=== PATIENT | female | born 2000 | race Caucasian/White ===

== ENCOUNTER 2023-08-01 18:45 | Emergency (ER) | payer SELFPAY ==
[2023-08-01 18:48] VITALS: BP 121/79; PULSE 94; RESP 16; TEMP 36.8; O2SAT 95; BMI 19.1
--- NOTE | 2023-08-01 19:06 | ED_ITS ---
HPI - Nausea/Vomiting/Diarrhea 2 General: Chief complaint: Abdominal Pain Stated complaint: n/v avd pain fever Time Seen by Provider: 08/01/23 19:05 History of Present Illness: 23-year-old female comes in today for co mplaints of nausea and vomiting starting last night. Patient denies any fever. Patient does report some diarrhea. Patient's last menstrual cycle was the end of June. Patient has a history of asthma and PCOS. Associated nausea: Yes Associated symtoms: Reports nausea Review of Systems 2 General: Reports: 10 or more systems reviewed and unremarkable except in HPI and below GI: Reports: nausea, vomiting and diarrhea Physical Exam 2 Const: COMMON NORMALS: alert HENMT: COMMON NORMALS: normocephalic HEAD & SCALP: normocephalic Neck/C-Spine: COMMON NORMALS: full ROM Resp: COMMON NORMALS: normal respiratory effort and clear to auscultation bilaterally AUSCULTATION: clear to auscultation bilaterally Cardio: COMMON NORMALS: regular rate and regular rhythm RATE: regular rate RHYTHM: regular rhythm GI: COMMON NORMALS: Soft to palpation PALPATION: Yes Soft to palpation and Yes Tenderness to palpation present (GI) : COMMON NORMALS: Yes no CVA tenderness BLADDER/KIDNEY EXAM: Yes no CVA tenderness Back/Pelvis: COMMON NORMALS: no CVA tenderness and thoracic and lumbar spine normal to inspection Extremity: COMMON NORMALS: no pedal edema Neuro: SENSORIUM/ORIENTATION: Yes alert Skin: COMMON NORMALS: turgor normal GENERAL SKIN EXAM: turgor normal Course 2 Vital Signs: Vital signs: Vital Signs Temperature 98.2 F 08/01/23 18:48 Pulse Rate 94 08/01/23 18:48 Respiratory Rate 16 08/01/23 18:48 Blood Pressure 121/79 08/01/23 18:48 Pulse Oximetry 95 08/01/23 18:48 Oxygen Delivery Me thod Room Air 08/01/23 18:48 MDM - Nausea/Vomiting/Diarrhea Medical Decision Making 23-year-old female comes in today for complaints of nausea and vomiting with abdominal pain starting last night. On exam patient appears mildly unwell but not toxic. Abdomen soft with some mild generalized tenderness. No rebound tenderness or guarding is noted. No CVA tenderness noted. Vital signs are normal. Differential diagnosis includes gastroenteritis, dehydration, gallbladder disease, UTI. CBC CMP were unremarkable except for some mild elevation anion gap. Urinalysis showed no signs of acute infection. Patient was given some Zofran and a liter of fluids which improved her symptoms. The patient probably has had a bout of gastroenteritis or viral syndrome that is aggravating this. Recommended Zofran and encouraging plenty of fluids and following up with primary care, for worsening symptoms to return to the ER. Lab Data 08/01/23 19:17 08/01/23 19:17 Laboratory Results WBC 8.67 10^3/uL (3.29-11.43) 08/01/23 19:17 RBC 5.29 10^6/uL (3.85-5.65) 08/01/23 19:17 Hgb 15.60 g/dL (11.27-16.99) 08/01/23 19:17 Hct 47.9 % (36-47) H 08/01/23 19:17 MCV 90.5 fl (85-98) 08/01/23 19:17 MCH 29.5 pg (27-33) 08/01/23 19:17 MCHC 32.6 g/dL (30-55) 08/01/23 19:17 RDW 12.0 % (12.1-15.1) L 08/01/23 19:17 Plt Count 267 10^3/cmm (157-399) 08/01/23 19:17 MPV 10.8 fL (7.4-10.4) H 08/01/23 19:17 Neut % (Auto) 79.3 % 08/01/23 19:17 Lymph % (Auto) 13.0 % 08/01/23 19:17 [place] % (Auto) 6.9 % 08/01/23 19:17 Eos % (Auto) 0.3 % 08/01/23 19:17 Baso % (Auto) 0.2 % 08/01/23 19:17 Neut # (Auto) 6.86 10^3/uL (1.8-7.7) 08/01/23 19:17 Lymph # (Auto) 1.1 10^3/uL (0.8-4.8) 08/01/23 19:17 [place] # (Auto) 0.6 10^3/uL (0.2-0.9) 08/01/23 19:17 Eos # (Auto) 0.0 10^3/uL (0.0-0.8) 08/01/23 19:17 Baso # (Auto) 0.0 10^3/uL (0.0-0.1) 08/01/23 19:17 Nucleated RBC % (auto) 0 % 08/01/23 19:17 Nucleated RBCs # 0.0 /100WBC 08/01/23 19:17 Sodium 143 mmol/L (136-145) 08/01/23 19:17 Potassium 4.3 mmol/L (3.5-5.1) 08/01/23 19:17 Chloride 99 mmol/L (98-107) 08/01/23 19:17 Carbon Dioxide 29 mmol/L (22-29) 08/01/23 19:17 Anion Gap 19.3 (5-19) H 08/01/23 19:17 BUN 11 mg/dL (6-20) 08/01/23 19:17 Creatinine 0.7 mg/dL (0.5-0.9) 08/01/23 19:17 GFR Calculation 105.6 mL/min (90-130) 08/01/23 19:17 Glucose 137 mg/dL (65-115) H 08/01/23 19:17 Calculated Osmolality 298 mOsm/kg (285-295) H 08/01/23 19:17 Calcium 10.5 mg/dL (8.5-10.5) 08/01/23 19:17 Total Bilirubin 0.3 mg/dL (0.15-1.2) 08/01/23 19:17 AST 35 U/L (0-32) H 08/01/23 19:17 ALT 35 U/L (0-33) H 08/01/23 19:17 Alkaline Phosphatase 80 U/L (35-105) 08/01/23 19:17 C-Reactive Protein 3.0 mg/L (0.0-4.9) 08/01/23 19:25 Total Protein 8.1 g/dL (6.6-8.7) 08/01/23 19:17 Albumin 5.1 g/dL (3.5-5.2) 08/01/23 19:17 Globulin 3.0 g/dL (1.3-4.6) 08/01/23 19:17 HCG, Qual Negative (Negative) 08/01/23 19:17 Urine Color Yellow (Yellow) 08/01/23 19:17 Urine Appearance Cloudy (CLEAR) A 08/01/23 19:17 Urine pH 8 (5-7) H 08/01/23 19:17 Ur Specific [place] 1.020 (1.005-1.030) 08/01/23 19:17 Urine Protein Neg (Negative) 08/01/23 19:17 Urine Glucose (UA) Norm (Normal) 08/01/23 19:17 Urine Ketones Negative (Negative) 08/01/23 19:17 Urine Blood Neg (Negative) 08/01/23 19:17 Urine Nitrate Negative (Negative) 08/01/23 19:17 Urine Bilirubin Neg (Negative) 08/01/23 19:17 Prot Sulfosalicylic Acd Negative (Negative) 08/01/23 19:17 Urine Urobilinogen Neg mg/dL (Negative) 08/01/23 19:17 Ur Leukocyte Esterase Negative (Negative) 08/01/23 19:17 Urine RBC 0-4 /hpf (0-2) H 08/01/23 19:17 Urine WBC 0-4 /hpf (0-5) H 08/01/23 19:17 Ur Squamous Epith Cells 0-4 /hpf (0-5) H 08/01/23 19:17 Amorphous Sediment 3+ /hpf 08/01/23 19:17 Urine Bacteria 1+ /hpf (NONE) H 08/01/23 19:17 Urine Mucus Trace /hpf 08/01/23 19:17 No radiology studies performed this visit Discharge Plan Discharge Patient Disposition: Home Clinical Impression: Gastroenteritis Condition: Stable Prescriptions: New ondansetron 4 mg tablet,disintegrating 4 mg PO Q8H PRN (Reason: nausea and vomiting) Qty: 7 0RF Discharge Orders: Discharge ED (Routine); Ordered 08/01/23 Ordered By: Ramsey Angelo Discharge Diet: Advance as tolerated Discharge Activity: Increase activity as tolerated Patient Instructions: Gastroenteritis (ED) Activity Restrictions/Additional Instructions: Use ondansetron as needed for nausea and vomiting. Drink frequent sips of water and electrolyte solution in order to maintain hydration. Follow-up with primary care in 2 to 3 days for recheck. Return to ED for worsening symptoms such as high fever, blood in vomit or stool, or severe pain. Coding Level of Care Code ED Power Project Manager for Santino Christensen
[2023-08-01] MEDS: sodium chloride 0.9% 1,000 ML 999 ML IV (19:24)
[2023-08-01 19:27] LABS: Basophils % 0.2 %; Eosinophils % 0.3 %; Hematocrit 47.9 % (36-47); Lymphocytes # 1.1 10^3/uL (0.8-4.8); Mean Corpuscular HGB Conc 32.6 g/dL (30-55); Mean Corpuscular Hemoglobin 29.5 pg (27-33); Mean Corpuscular Volume 90.5 fl (85-98); Mean Platelet Volume 10.8 fL (7.4-10.4); Monocytes # 0.6 10^3/uL (0.2-0.9); Monocytes % 6.9 %; Neutrophils # 6.86 10^3/uL (1.8-7.7); Neutrophils % 79.3 %; Nucleated Red Blood Cells % 0 %; Platelet Count 267 10^3/cmm (157-399); Red Blood Count 5.29 10^6/uL (3.85-5.65); White Blood Count 8.67 10^3/uL (3.29-11.43)
[2023-08-01] MEDS: ondansetron 2 mg/ML SDV 2 mL 4 MG IVP (19:27)
[2023-08-01 19:41] LABS: Alanine Aminotransferase 35 U/L (0-33); Albumin Level 5.1 g/dL (3.5-5.2); Alkaline Phosphatase 80 U/L (35-105); Anion Gap 19.3 (5-19); Aspartate Amino Transferase 35 U/L (0-32); Blood Urea Nitrogen 11 mg/dL (6-20); Calcium 10.5 mg/dL (8.5-10.5); Carbon Dioxide 29 mmol/L (22-29); Chloride 99 mmol/L (98-107); Creatinine Clr Calc Pharmacy 119.3289; Glomerular Filtration Rate 105.6 mL/min (90-130); Glucose 137 mg/dL (65-115); Osmolality Calculated 298 mOsm/kg (285-295); Potassium 4.3 mmol/L (3.5-5.1); Sodium 143 mmol/L (136-145); Total Bilirubin 0.3 mg/dL (0.15-1.2); Total Protein 8.1 g/dL (6.6-8.7)
[2023-08-01 19:45] LABS: HCG, Serum Qual Negative (Negative)
[2023-08-01 19:51] LABS: Glucose Urine UA Norm (Normal); Ketones Urine Negative (Negative); Protein Urine Neg (Negative); Urine Appearance Cloudy (CLEAR); Urine Color Yellow (Yellow); pH Urine 8 (5-7)
[2023-08-01 19:52] LABS: Add Urine Microscopic? YES; Amorphous Sediment Urine 3+ /hpf; Bacteria Urine 1+ /hpf; Bilirubin Urine Neg (Negative); Blood Urine Neg (Negative); Leukocyte Esterase Urine Negative (Negative); Mucus Urine TRACE /hpf; Nitrate Urine Negative (Negative); RBC Urine 0-4 /hpf (0-2); Squamous Epithelial Cell Urine 0-4 /hpf (0-5); Sulfosalicylic Acid Urine Negative (Negative); Urobilinogen Urine Neg (Negative); WBC Urine 0-4 /hpf (0-5)
[2023-08-01 20:24] VITALS: BP 125/80; PULSE 89; RESP 16; TEMP 36.8; O2SAT 96
== END 2023-08-01 20:24 | disposition home or self-care (01) ==
PROVIDERS: Emergency Provider Nurse Practitioner Family
DX: K52.9 Noninfective gastroenteritis and colitis, unspecified (principal)
CPT/HCPCS: 80053; 81001; 84703; 85025; 86140; 96361; 96374; 99284; J2405; J7030

== ENCOUNTER 2023-08-03 14:19 | Emergency (ER) | payer BC, SELFPAY ==
[2023-08-03 14:26] VITALS: BP 123/79; PULSE 106; RESP 16; TEMP 36.4; O2SAT 99
[2023-08-03 14:53] LABS: Basophils % 0.3 %; Eosinophils % 0.1 %; Lymphocytes # 1.5 10^3/uL (0.8-4.8); Lymphocytes % 16.1 %; Mean Corpuscular HGB Conc 33.2 g/dL (30-55); Mean Corpuscular Hemoglobin 29.3 pg (27-33); Mean Corpuscular Volume 88.3 fl (85-98); Mean Platelet Volume 11.2 fL (7.4-10.4); Monocytes # 0.8 10^3/uL (0.2-0.9); Monocytes % 8.9 %; Neutrophils # 6.73 10^3/uL (1.8-7.7); Neutrophils % 74.4 %; Nucleated Red Blood Cells % 0 %; Platelet Count 307 10^3/cmm (157-399); Red Blood Count 5.32 10^6/uL (3.85-5.65); Red Cell Distribution Width 11.9 % (12.1-15.1); White Blood Count 9.06 10^3/uL (3.29-11.43)
--- NOTE | 2023-08-03 14:53 | ED_ITS ---
HPI - Nausea/Vomiting/Diarrhea 2 General: Chief complaint: Nausea/Vomiting/Diarrhea Stated complaint: n/v, abd pain Time Seen by Provider: 08/03/23 14:48 Source: patient Mode of arrival: ambulatory Limitations: no limitations History of Present Illness: Patient is a 23-year-old female who presents to ED today along with her significant other for evaluation of nausea, vomiting, abdominal pain. She states symptoms initially began approximately 4 days ago. She states she was seen here 2 days ago and states her workup at that time was essentially benign. She has been taking Zofran at home without relief of her nausea and vomiting. She states she has had stomach issues since the age of 15 and has been told previously could be related to her gallbladder. Patient is having intermittent abdominal cramping. She states the only thing that helps her nausea and vomiting is sitting in the bathtub. She denies marijuana use. No fevers. Has had a few episodes of diarrhea. MD elicited complaint: nausea, vomiting, diarrhea and abdominal pain Onset (ago): day(s) Description of diarrhea: watery Associated nausea: Yes Associated abdominal pain: Yes Location of pain: Diffuse Radiation: diffuse Pain consistency: intermittent Severity: moderate Quality: cramping Exacerbating factors: none Relieving factors: none Associated symtoms: Reports nausea; Denies chest pain, dizziness, dysuria, fatigue, headache(s) or malaise Treatment prior to arrival: other (zofran) Review of Systems 2 Const: Denies: fever(s), chills, body aches, fatigue or malaise Card: Denies: chest pain Resp: Denies: dyspnea GI: Reports: abdominal pain, nausea, vomiting and diarrhea; Denies: hematemesis, hematochezia or melena : Denies: flank pain, difficulty voiding, dysuria, urinary frequency, urinary urgency or urinary hesitancy Musc: Denies: neck pain, back pain, extremity pain or joint pain Skin/Breast: Denies: rash Neuro: Denies: headache(s), numbness in extremities, weakness in extremities, sensory changes or dizziness Physical Exam 2 Const: COMMON NORMALS: no acute distress, patient oriented x3, no limitations and alert GENERAL APPEARANCE: cooperative NUTRITIONAL APPEARANCE: thin ORIENTATION/CONSCIOUSNESS: Yes awake, Yes oriented to person, Yes oriented to place and Yes oriented to time Eye: COMMON NORMALS: no scleral icterus Resp: COMMON NORMALS: normal respiratory effort and clear to auscultation bilaterally AUSCULTATION: clear to auscultation bilaterally Cardio: COMMON NORMALS: regular rate and regular rhythm RATE: regular rate RHYTHM: regular rhythm GI: COMMON NORMALS: Normal to inspection, nondistended, normoactive bowel sounds present, Soft to palpation, No hepatosplenomegaly present and no masses INSPECTION: Yes normal to inspection PALPATION: Yes Soft to palpation, Yes Tenderness to palpation present (GI) (diffusely; dry heaves after palpation of abdomen), No Guarding due to palpation present (GI), No Rigid due to palpation and Yes No hepatosplenomegaly present : COMMON NORMALS: Yes no CVA tenderness BLADDER/KIDNEY EXAM: Yes no CVA tenderness Back/Pelvis: COMMON NORMALS: no CVA tenderness Extremity: GENERAL: Yes normal exam except as noted Neuro: YARELIS COMA SCALE: document GCS findings Yarelis coma scale eye opening: Spontaneous [place] coma scale verbal response: Orientated [place] coma scale motor response: Obey commands [place] coma scale total score: 15 COMMON NORMALS: patient oriented x3 SENSORIUM/ORIENTATION: Yes alert, Yes oriented to person, Yes oriented to place and Yes oriented to time Skin: COMMON NORMALS: no rashes or lesions noted GENERAL SKIN EXAM: no rashes or lesions noted Course 2 Vital Signs: Vital signs: Vital Signs Temperature 97.6 F 08/03/23 14:26 Pulse Rate 106 H 08/03/23 14:26 Respiratory Rate 16 08/03/23 15:49 Blood Pressure 103/71 08/03/23 15:49 Pulse Oximetry 97 08/03/23 15:49 Oxygen Delivery Me thod Room Air 08/03/23 15:49 MDM - Nausea/Vomiting/Diarrhea Medical Decision Making Patient is a 23-year-old female here for profound continuous nausea and vomiting over the past 4 days. She has been trying Zofran at home without much relief. She states she does get some relief from a hot bath. She adamantly denies any form of THC/CBD use. DDx includes gastroenteritis, cyclic vomiting syndrome. She was given IV Reglan and Haldol here with great improvement of her symptoms. She was able to eat/drink here without vomiting. She is requesting to go home at this time. Will place case management referral to get her set up with primary care provider. Will try different antiemetics at home with Reglan and Zyprexa. Return ED precautions given. Abdomen is nonsurgical at this time and I do not see any indication for emergent imaging. Differential Diagnosis Likely food poisoning, gastroenteritis, drug-induced nausea and vomiting and dehydration Medical Records I reviewed the patient's medical records. Lab Data I reviewed the patient's lab results. 08/03/23 14:32 08/03/23 14:32 Laboratory Results WBC 9.06 10^3/uL (3.29-11.43) 08/03/23 14:32 RBC 5.32 10^6/uL (3.85-5.65) 08/03/23 14:32 Hgb 15.60 g/dL (11.27-16.99) 08/03/23 14:32 Hct 47.0 % (36-47) 08/03/23 14:32 MCV 88.3 fl (85-98) 08/03/23 14:32 MCH 29.3 pg (27-33) 08/03/23 14:32 MCHC 33.2 g/dL (30-55) 08/03/23 14:32 RDW 11.9 % (12.1-15.1) L 08/03/23 14:32 Plt Count 307 10^3/cmm (157-399) 08/03/23 14:32 MPV 11.2 fL (7.4-10.4) H 08/03/23 14:32 Neut % (Auto) 74.4 % 08/03/23 14:32 Lymph % (Auto) 16.1 % 08/03/23 14:32 [place] % (Auto) 8.9 % 08/03/23 14:32 Eos % (Auto) 0.1 % 08/03/23 14:32 Baso % (Auto) 0.3 % 08/03/23 14:32 Neut # (Auto) 6.73 10^3/uL (1.8-7.7) 08/03/23 14:32 Lymph # (Auto) 1.5 10^3/uL (0.8-4.8) 08/03/23 14:32 [place] # (Auto) 0.8 10^3/uL (0.2-0.9) 08/03/23 14:32 Eos # (Auto) 0.0 10^3/uL (0.0-0.8) 08/03/23 14:32 Baso # (Auto) 0.0 10^3/uL (0.0-0.1) 08/03/23 14:32 Nucleated RBC % (auto) 0 % 08/03/23 14:32 Nucleated RBCs # 0.0 /100WBC 08/03/23 14:32 Sodium 133 mmol/L (136-145) L 08/03/23 14:32 Potassium 4.0 mmol/L (3.5-5.1) 08/03/23 14:32 Chloride 92 mmol/L (98-107) L 08/03/23 14:32 Carbon Dioxide 24 mmol/L (22-29) 08/03/23 14:32 Anion Gap 21.0 (5-19) H 08/03/23 14:32 BUN 17 mg/dL (6-20) 08/03/23 14:32 Creatinine 0.8 mg/dL (0.5-0.9) 08/03/23 14:32 GFR Calculation 90.5 mL/min (90-130) 08/03/23 14:32 Glucose 91 mg/dL (65-115) 08/03/23 14:32 Calculated Osmolality 277 mOsm/kg (285-295) L 08/03/23 14:32 Calcium 11.0 mg/dL (8.5-10.5) H 08/03/23 14:32 Total Bilirubin 0.6 mg/dL (0.15-1.2) 08/03/23 14:32 AST 31 U/L (0-32) 08/03/23 14:32 ALT 31 U/L (0-33) 08/03/23 14:32 Alkaline Phosphatase 76 U/L (35-105) 08/03/23 14:32 Total Protein 8.6 g/dL (6.6-8.7) 08/03/23 14:32 Albumin 5.0 g/dL (3.5-5.2) 08/03/23 14:32 Globulin 3.6 g/dL (1.3-4.6) 08/03/23 14:32 Lipase 25 U/L (13-60) 08/03/23 14:32 HCG, Qual Negative (Negative) 08/03/23 14:32 Urine Color Yellow (Yellow) 08/03/23 15:47 Urine Appearance Sl hazy (CLEAR) A 08/03/23 15:47 Urine pH 6 (5-7) 08/03/23 15:47 Ur Specific [place] 1.030 (1.005-1.030) 08/03/23 15:47 Urine Protein 1+ (Negative) H 08/03/23 15:47 Urine Glucose (UA) Norm (Normal) 08/03/23 15:47 Urine Ketones 3+ (Negative) H 08/03/23 15:47 Urine Blood Neg (Negative) 08/03/23 15:47 Urine Nitrate Negative (Negative) 08/03/23 15:47 Urine Bilirubin Neg (Negative) 08/03/23 15:47 Urine Urobilinogen Norm mg/dL (Negative) 08/03/23 15:47 Ur Leukocyte Esterase Negative (Negative) 08/03/23 15:47 Amorphous Sediment Not Reportable 08/03/23 15:47 No radiology studies performed this visit Discharge Plan Discharge Patient Disposition: Home Clinical Impression: Gastroenteritis Condition: Stable Prescriptions: New metoclopramide HCl 10 mg tablet 10 mg PO Q6H PRN (Reason: nausea and vomiting) Qty: 14 0RF Zyprexa 2.5 mg tablet 2.5 mg PO BID Qty: 10 0RF Discontinued ondansetron 4 mg tablet,disintegrating 4 mg PO Q8H PRN (Reason: nausea and vomiting) Qty: 7 0RF Discharge Orders: Discharge ED (Routine); Ordered 08/03/23 Ordered By: Katelin Loja Patient Instructions: Acute Nausea and Vomiting (DC), Cyclic Vomiting Syndrome (ED) Activity Restrictions/Additional Instructions: As we discussed we will get you a follow-up appointment with primary care. We will place you on some different medications at home to see if this better controls her nausea and vomiting. You may return to the emergency department for intractable nausea or vomiting, severe abdominal pain, fevers, generally feeling worse or unwell, or any other concerns you may have. I hope you begin to feel better soon. Coding Level of Care Code ED Casing Man for Santino Christensen
[2023-08-03 14:58] LABS: Alanine Aminotransferase 31 U/L (0-33); Alkaline Phosphatase 76 U/L (35-105); Aspartate Amino Transferase 31 U/L (0-32); Blood Urea Nitrogen 17 mg/dL (6-20); Carbon Dioxide 24 mmol/L (22-29); Chloride 92 mmol/L (98-107); Creatinine Clr Calc Pharmacy 104.4128; Globulin 3.6 g/dL (1.3-4.6); Glomerular Filtration Rate 90.5 mL/min (90-130); Glucose 91 mg/dL (65-115); Lipase 25 U/L (13-60); Osmolality Calculated 277 mOsm/kg (285-295); Sodium 133 mmol/L (136-145); Total Bilirubin 0.6 mg/dL (0.15-1.2); Total Protein 8.6 g/dL (6.6-8.7)
[2023-08-03 15:06] LABS: HCG, Serum Qual Negative (Negative)
[2023-08-03] MEDS: metoclopramide 5 mg/mL SDV 2 mL 10 MG IVP (15:11)
[2023-08-03] MEDS: sodium chloride 0.9% 1,000 ML 999 ML IV (15:12)
[2023-08-03] MEDS: haloperidol inj 5 mg/mL INJ 1 mL 2.5 MG IVP (15:12)
[2023-08-03 15:49] VITALS: BP 103/71; RESP 16; O2SAT 97
[2023-08-03 16:26] LABS: Add Urine Microscopic? YES; Bilirubin Urine Neg (Negative); Blood Urine Neg (Negative); Glucose Urine UA Norm (Normal); Ketones Urine 3+ (Negative); Leukocyte Esterase Urine Negative (Negative); Nitrate Urine Negative (Negative); Protein Urine 1+ (Negative); Urine Appearance SL Hazy (CLEAR); Urine Color Yellow (Yellow); Urobilinogen Urine Norm (Negative); pH Urine 6 (5-7)
[2023-08-03 16:40] LABS: Add Urine Culture? No; Bacteria Urine TRACE /hpf; Mucus Urine 1+ /hpf; RBC Urine 0-4 /hpf (0-2); Squamous Epithelial Cell Urine 0-4 /hpf (0-5); WBC Urine 0-4 /hpf (0-5)
[2023-08-03 16:45] VITALS: BP 109/74; PULSE 109; RESP 16; O2SAT 95
--- NOTE | 2023-08-04 12:03 | DCPLANNER ---
messaged about pcp referral
== END 2023-08-03 16:46 | disposition home or self-care (01) ==
PROVIDERS: Emergency Provider Physician Assistant
DX: K52.9 Noninfective gastroenteritis and colitis, unspecified (principal)
CPT/HCPCS: 36415; 80053; 81001; 83690; 84703; 85025; 96374; 96375; 99284; J1630; J2765; J7030

== ENCOUNTER 2023-09-02 14:41 | Emergency (ER) | payer BC, SELFPAY ==
[2023-09-02 14:45] VITALS: BP 107/67; PULSE 84; RESP 18; TEMP 36.7; O2SAT 97; BMI 19.4
[2023-09-02 14:54] VITALS: O2SAT 98
--- NOTE | 2023-09-02 15:03 | CTR_ITS ---
PROCEDURE INFORMATION: Exam: CT Abdomen And Pelvis With Contrast Exam date and time: 09/02/2023 4:09 PM Age: 23 years old Clinical indication: Abdominal pain; Localized; Lower; Prior surgery; Surgery date: 6+ months; Surgery type: Lap to R/O endometriosis; Additional info: Abd pain TECHNIQUE: Imaging protocol: Computed tomography of the abdomen and pelvis with contrast. Radiation optimization: All CT scans at this facility use at least one of these dose optimization techniques: automated exposure control; mA and/or kV adjustment per patient size (includes targeted exams where dose is matched to clinical indication); or iterative reconstruction. Contrast material: OMNI 350; Contrast volume: 100 ml; Contrast route: INTRAVENOUS (IV); COMPARISON: No relevant prior studies available. RADIATION DOSE METRICS: Total DLP (mGy-cm): 346.15 FINDINGS: Lungs: Lung bases are clear. Liver: The liver is normal. Gallbladder and bile ducts: The gallbladder is normal. There is no biliary dilation. Pancreas: The pancreas is unremarkable. Spleen: The spleen is unremarkable. Adrenal glands: The adrenal glands are unremarkable. Kidneys and ureters: The kidneys are unremarkable. No hydronephrosis or stones. No ureteral dilation. Stomach and bowel: The stomach is nondistended, limiting assessment of wall thickness. The small bowel is nondilated. The colon is unremarkable. Appendix: The appendix is normal. Intraperitoneal space: No intraperitoneal free air. Vasculature: The aorta is unremarkable. There is no aneurysm. The portal, splenic and superior mesenteric veins are patent. Lymph nodes: There is no lymphadenopathy in the retroperitoneum, mesentery, pelvis or inguinal regions. Urinary bladder: The urinary bladder is unremarkable. Reproductive: The uterus is unremarkable. There is no adnexal mass or large cyst. There is a 2 cm corpus luteum in the right ovary. There is a small volume of simple free fluid in the posterior cul-de-sac and right adnexa. Bones/joints: Bones are unremarkable. Soft tissues: The abdominal wall is intact. CT/CT abdomen pelvis w con* [id number] IMPRESSION: 1. No definite pathologic findings in the abdomen or pelvis. 2. Pelvic free fluid may be physiologic, and is associated with a corpus luteum in the right ovary. 3. Incidental findings above.
[2023-09-02 15:14] LABS: Basophils % 0.4 %; Eosinophils # 0.1 10^3/uL (0.0-0.8); Eosinophils % 1.2 %; Hematocrit 45.5 % (36-47); Lymphocytes # 1.7 10^3/uL (0.8-4.8); Lymphocytes % 22.2 %; Mean Corpuscular HGB Conc 32.5 g/dL (30-55); Mean Corpuscular Hemoglobin 29.3 pg (27-33); Mean Corpuscular Volume 90.1 fl (85-98); Mean Platelet Volume 11.3 fL (7.4-10.4); Monocytes # 0.8 10^3/uL (0.2-0.9); Neutrophils # 5.03 10^3/uL (1.8-7.7); Neutrophils % 65.9 %; Nucleated Red Blood Cells % 0 %; Platelet Count 236 10^3/cmm (157-399); Red Blood Count 5.05 10^6/uL (3.85-5.65); Red Cell Distribution Width 12.2 % (12.1-15.1); White Blood Count 7.62 10^3/uL (3.29-11.43)
[2023-09-02 15:24] LABS: Alanine Aminotransferase 12 U/L (0-33); Albumin Level 4.8 g/dL (3.5-5.2); Alkaline Phosphatase 70 U/L (35-105); Blood Urea Nitrogen 8 mg/dL (6-20); Calcium 9.9 mg/dL (8.5-10.5); Carbon Dioxide 26 mmol/L (22-29); Chloride 102 mmol/L (98-107); Creatinine Clr Calc Pharmacy 119.3289; Globulin 3.1 g/dL (1.3-4.6); Glomerular Filtration Rate 105.6 mL/min (90-130); Glucose 68 mg/dL (65-115); Lipase 35 U/L (13-60); Osmolality Calculated 285 mOsm/kg (285-295); Sodium 139 mmol/L (136-145); Total Bilirubin 0.4 mg/dL (0.15-1.2); Total Protein 7.9 g/dL (6.6-8.7)
[2023-09-02] MEDS: ondansetron 2 mg/ML SDV 2 mL 4 MG IVP (15:38)
[2023-09-02] MEDS: sodium chloride 0.9% 1,000 ML 999 ML IV (15:38)
[2023-09-02 15:43] LABS: Add Urine Microscopic? NO; Charge for UA Resulting for Rev
--- NOTE | 2023-09-02 15:48 | ED_ITS ---
HPI - Nausea/Vomiting/Diarrhea 2 General: Chief complaint: Nausea/Vomiting/Diarrhea Stated complaint: vomit/gi bleed Time Seen by Provider: 09/02/23 15:03 Source: patient Mode of arrival: ambulatory History of Present Illness: 23-year-old female presents emergency ro om complaining of intermittent vomiting for the last 2 weeks. She states almost anything she eats will cause her to get nauseous and throw up. She had a few small streaks of blood earlier today. She has not had any diarrhea. No significant abdominal pain other than the abdominal wall has become tender because of her recurrent vomiting. No hematochezia. No dysuria urgency or frequency her last menstrual period was around August 12 to she does not believe she is . She has seen her doctor before and they started her on some dicyclomine and Reglan which not has not particularly been helpful. She has not had any further evaluation. MD elicited complaint: nausea and vomiting Onset (ago): week(s) (2) Description of vomiting: food contents and watery Associated nausea: Yes Associated abdominal pain: No Severity: moderate Exacerbating factors: eating Relieving factors: none Associated symtoms: Reports nausea; Denies altered mental status, anxiety, bloating, change in vision, chest pain, cough, diaphoresis, decreased urine output, dizziness, dysuria, epistaxis, fatigue, fecal incontinence, fevers/chills, headache(s), anorexia, malaise, myalgias, numbness, palpitations, rash, short of breath, syncope, tenesmus, tinnitus or weakness Review of Systems 2 Const: Denies: fever(s), chills, fatigue, malaise or diaphoresis Eyes: Denies: change in vision ENMT: Denies: tinnitus or epistaxis Card: Denies: chest pain, palpitations or syncope Resp: Denies: dyspnea GI: Reports: nausea; Denies: abdominal pain, bloating or fecal incontinence : Denies: dysuria, urinary frequency or urinary urgency Musc: Denies: neck pain or back pain Skin/Breast: Denies: rash Neuro: Denies: headache(s) or dizziness Psych: Denies: anxiety PFSH ED 2 PFSH: Medical History Chronic abdominal pain Asthma PCOS (polycystic ovarian syndrome) Surgical History [place] teeth removed H/O laparoscopy Family History Father Diabetes Liver disease Mother PCOS (polycystic ovarian syndrome) Hiatal hernia Social History Smoking and tobacco/nicotine status: former use of tobacco/nicotine Alcohol intake: never Substance/Drug Use: former Physical Exam 2 Const: COMMON NORMALS: no acute distress EXAM LIMITATIONS: no altered mental status GENERAL APPEARANCE: cooperative and comfortable O RIENTATION/CONSCIOUSNESS: Yes awake, Yes oriented to person, Yes oriented to place and Yes oriented to time HENMT: COMMON NORMALS: normocephalic, atraumatic and hearing grossly normal bilaterally HEAD & SCALP: normocephalic and atraumatic Resp: COMMON NORMALS: normal respiratory effort, No retractions, No use of accessory muscles and clear to auscultation bilaterally AUSCULTATION: clear to auscultation bilaterally Cardio: COMMON NORMALS: regular rate, regular rhythm and No murmurs present (Cardio) RATE: regular rate RHYTHM: regular rhythm GI: COMMON NORMALS: Soft to palpation and No hepatosplenomegaly present A USCULTATION: Yes normoactive bowel sounds PALPATION: Yes Soft to palpation, No Tenderness to palpation present (GI), No Guarding due to palpation present (GI) and Yes No hepatosplenomegaly present Extremity: COMMON NORMALS: normal to inspection, capillary refill normal, no clubbing, cyanosis or edema, no calf tenderness and no pedal edema Neuro: SENSORIUM/ORIENTATION: Yes oriented to person, Yes oriented to place and Yes oriented to time Skin: COMMON NORMALS: no rashes or lesions noted GENERAL SKIN EXAM: no rashes or lesions noted Course 2 Vital Signs: Vital signs: Vital Signs Temperature 98.0 F 09/02/23 14:45 Pulse Rate 84 09/02/23 14:45 Respiratory Rate 18 09/02/23 14:45 Blood Pressure 107/67 09/02/23 14:45 Pulse Oximetry 97 09/02/23 16:25 Oxygen Delivery Me thod Room Air 09/02/23 16:25 MDM - Nausea/Vomiting/Diarrhea Medical Decision Making Laboratory tests are unremarkable exam does not have any acute abdomen either initially repeated prior to discharge still there is no acute findings. CT was unremarkable for acute findings. Will start her on pantoprazole 40 mg daily as well as promethazine as needed GI bland diet. Will set her up to see surgery for possible EGD. Reviewed with patient she is agreeable. Medical Records I reviewed the patient's medical records. Lab Data I reviewed the patient's lab results. 09/02/23 14:25 09/02/23 14:25 Radiology Impressions Abdomen/Pelvis CT 09/02/23 15:03 IMPRESSION: 1. No definite pathologic findings in the abdomen or pelvis. 2. Pelvic free fluid may be physiologic, and is associated with a corpus luteum in the right ovary. 3. Incidental findings above. Laboratory Results WBC 7.62 10^3/uL (3.29-11.43) 09/02/23 14:25 RBC 5.05 10^6/uL (3.85-5.65) 09/02/23 14:25 Hgb 14.80 g/dL (11.27-16.99) 09/02/23 14:25 Hct 45.5 % (36-47) 09/02/23 14:25 MCV 90.1 fl (85-98) 09/02/23 14:25 MCH 29.3 pg (27-33) 09/02/23 14:25 MCHC 32.5 g/dL (30-55) 09/02/23 14:25 RDW 12.2 % (12.1-15.1) 09/02/23 14:25 Plt Count 236 10^3/cmm (157-399) 09/02/23 14:25 MPV 11.3 fL (7.4-10.4) H 09/02/23 14:25 Neut % (Auto) 65.9 % 09/02/23 14:25 Lymph % (Auto) 22.2 % 09/02/23 14:25 [place] % (Auto) 10.0 % 09/02/23 14:25 Eos % (Auto) 1.2 % 09/02/23 14:25 Baso % (Auto) 0.4 % 09/02/23 14:25 Neut # (Auto) 5.03 10^3/uL (1.8-7.7) 09/02/23 14:25 Lymph # (Auto) 1.7 10^3/uL (0.8-4.8) 09/02/23 14:25 [place] # (Auto) 0.8 10^3/uL (0.2-0.9) 09/02/23 14:25 Eos # (Auto) 0.1 10^3/uL (0.0-0.8) 09/02/23 14:25 Baso # (Auto) 0.0 10^3/uL (0.0-0.1) 09/02/23 14:25 Nucleated RBC % (auto) 0 % 09/02/23 14:25 Nucleated RBCs # 0.0 /100WBC 09/02/23 14:25 Sodium 139 mmol/L (136-145) 09/02/23 14:25 Potassium 4.0 mmol/L (3.5-5.1) 09/02/23 14:25 Chloride 102 mmol/L (98-107) 09/02/23 14:25 Carbon Dioxide 26 mmol/L (22-29) 09/02/23 14:25 Anion Gap 15.0 (5-19) 09/02/23 14:25 BUN 8 mg/dL (6-20) 09/02/23 14:25 Creatinine 0.7 mg/dL (0.5-0.9) 09/02/23 14:25 GFR Calculation 105.6 mL/min (90-130) 09/02/23 14:25 Glucose 68 mg/dL (65-115) 09/02/23 14:25 Calculated Osmolality 285 mOsm/kg (285-295) 09/02/23 14:25 Calcium 9.9 mg/dL (8.5-10.5) 09/02/23 14:25 Total Bilirubin 0.4 mg/dL (0.15-1.2) 09/02/23 14:25 AST 22 U/L (0-32) 09/02/23 14:25 ALT 12 U/L (0-33) 09/02/23 14:25 Alkaline Phosphatase 70 U/L (35-105) 09/02/23 14:25 Total Protein 7.9 g/dL (6.6-8.7) 09/02/23 14:25 Albumin 4.8 g/dL (3.5-5.2) 09/02/23 14:25 Globulin 3.1 g/dL (1.3-4.6) 09/02/23 14:25 Lipase 35 U/L (13-60) 09/02/23 14:25 HCG, Qual Negative (Negative) 09/02/23 15:40 Urine Color Yellow (Yellow) 09/02/23 15:30 Urine Appearance Clear (CLEAR) 09/02/23 15:30 Urine pH 7 (5-7) 09/02/23 15:30 Ur Specific [place] 1.010 (1.005-1.030) 09/02/23 15:30 Urine Protein Neg (Negative) 09/02/23 15:30 Urine Glucose (UA) Norm (Normal) 09/02/23 15:30 Urine Ketones Negative (Negative) 09/02/23 15:30 Urine Blood Neg (Negative) 09/02/23 15:30 Urine Nitrate Negative (Negative) 09/02/23 15:30 Urine Bilirubin Neg (Negative) 09/02/23 15:30 Urine Urobilinogen Norm mg/dL (Negative) 09/02/23 15:30 Ur Leukocyte Esterase Negative (Negative) 09/02/23 15:30 All radiology interpretation(s) finalized by discharge Discharge Plan Discharge Patient Disposition: Home Clinical Impression: Chronic abdominal pain, Nausea & vomiting Condition: Stable Prescriptions: New Protonix 40 mg tablet,delayed release (DR/EC) 40 mg PO DAILY Qty: 30 0RF promethazine 25 mg tablet 25 mg PO Q6H PRN (Reason: nausea and vomiting) Qty: 20 0RF No Action dicyclomine 10 mg capsule 10 mg PO .q 6 hr PRN (Reason: abdominal pain) Qty: 30 1RF metoclopramide HCl 10 mg tablet 10 mg PO Q6H PRN (Reason: nausea and vomiting) Qty: 14 0RF Zyprexa 2.5 mg tablet 2.5 mg PO BID Qty: 10 0RF Discharge Orders: Discharge ED (Routine); Ordered 09/02/23 Ordered By: Pb Avila Referrals: True Patel MD [Primary Care Provider] - Discharge Diet: As Directed Patient Instructions: Diet for Stomach Ulcers and Gastritis (ED), Abdominal Pain (ED), Opioid Safety, Pain Management Activity Restrictions/Additional Instructions: Thank you for choosing [facility] for your healthcare needs today. Please realize this is an emergency room and that we are providing you with a medical screening exam and this may not be complete and all inclusive of all the testing and or work up that you may need to determine your ailment or severity of your illness. It is very important that you follow up as instructed or that you return to the Emergency Department should you have concerns or if your condition changes or worsens in any way. You were seen today for recurrent vomiting. Recommended that you start pantoprazole 40 mg daily as above promethazine 1 every 6 hours as needed. Case management make arrangements for you to have a follow-up with general surgery for consideration of EGD. Coding Level of Care Code ED Preventive Medicine Officer for Santino Christensen
[2023-09-02 15:49] LABS: Bilirubin Urine Neg (Negative); Blood Urine Neg (Negative); Glucose Urine UA Norm (Normal); Ketones Urine Negative (Negative); Leukocyte Esterase Urine Negative (Negative); Nitrate Urine Negative (Negative); Protein Urine Neg (Negative); Urine Appearance Clear (CLEAR); Urine Color Yellow (Yellow); Urobilinogen Urine Norm (Negative); pH Urine 7 (5-7)
[2023-09-02 16:02] LABS: HCG, Serum Qual Negative (Negative)
[2023-09-02] MEDS: iohexol 350 mg/mL 500 mL Btl (per mL) IV (16:12)
[2023-09-02 16:25] VITALS: O2SAT 97
[2023-09-02 16:26] LABS: Aspartate Amino Transferase 22 U/L (0-32)
--- NOTE | 2023-09-03 11:23 | DCPLANNER ---
message sent to gen surg for er f/u
== END 2023-09-02 17:49 | disposition home or self-care (01) ==
PROVIDERS: Emergency Provider Family Medicine; PCP Family Medicine Adult Medicine
DX: G89.29 Other chronic pain (principal); R10.9 Unspecified abdominal pain; R11.2 Nausea with vomiting, unspecified; Z87.891 Personal history of nicotine dependence
CPT/HCPCS: 36415; 74177; 80053; 81003; 83690; 84703; 85025; 96374; 99285; J2405; J7030; Q9967

== ENCOUNTER 2023-10-06 07:25 | Outpatient (CLI) | payer BC, SELFPAY ==
--- NOTE | 2023-10-06 07:30 | USR_ITS ---
PROCEDURE INFORMATION: Exam: US Abdomen, Limited; Right Upper Quadrant Exam date and time: 10/06/2023 7:36 AM Age: 23 years old Clinical indication: Abdominal pain; Generalized TECHNIQUE: Imaging protocol: Real time ultrasound of the abdomen with image documentation. Limited exam focused on the right upper quadrant. COMPARISON: CT abdomen pelvis w con* [id number] 09/02/2023 4:09 PM FINDINGS: Liver: Normal. No masses. Gallbladder: Normal. No gallstones. There is no gallbladder wall thickening. Biliary ducts: Normal. No stones. No dilation. Pancreas: Visualized pancreas is unremarkable. Right kidney: Normal. No mass. No hydronephrosis. US/US gall bladder [id number] IMPRESSION: No acute findings.
== END 2023-10-06 07:26 | disposition home or self-care (01) ==
LOC: RAD 07:25
PROVIDERS: PCP Family Medicine Adult Medicine; Visit Provider Surgery
DX: R10.9 Unspecified abdominal pain (principal); G89.29 Other chronic pain
CPT/HCPCS: 76705

== ENCOUNTER → 2023-11-08 07:49 | Outpatient (BNVA) | payer BC, SELFPAY | PROVIDERS: PCP Family Medicine Adult Medicine; Visit Provider Nurse Practitioner Women's Health | DX: R10.2 Pelvic and perineal pain (principal) | CPT/HCPCS: 76830 ==

== ENCOUNTER 2023-11-26 18:13 | Emergency (ER) | payer BC, SELFPAY ==
[2023-11-26 18:21] VITALS: BP 125/77; PULSE 92; RESP 18; TEMP 36.8; O2SAT 99; BMI 19.9
== END 2023-11-26 19:05 | disposition left against medical advice (07) ==
PROVIDERS: Emergency Provider Family Medicine; PCP Family Medicine Adult Medicine
DX: Z53.21 Procedure and treatment not carried out due to patient leaving prior to being seen by health care provider (principal)

== ENCOUNTER 2024-01-03 18:32 | Emergency (ER) | payer BC, SELFPAY ==
[2024-01-03 18:40] VITALS: BP 123/82; PULSE 98; TEMP 36.8; O2SAT 99; BMI 21.1
--- NOTE | 2024-01-03 20:13 | ED_ITS ---
HPI - Abdominal Pain 2 General: Chief Complaint: Abdominal Pain Stated Complaint: N/V, Lower abd pain Time Seen by Provider: 01/03/24 18:45 Source: patient Mode of arrival: ambulatory Limitations: no limitations History of Present Illness: Patient is a 23-year-old female presents the emergency department complaining of 3 to 4 days of suprapubic abdominal pain. She states she feels like she is having a bad UTI, also states she is 1 month late on her menstrual cycle and though she has the sensation that she is bleeding, has not noticed any vaginal bleeding. She also notes some hesitancy with urination. Reports that she is sick to her stomach and has been vomiting, though states she has been dealing with this since she was 15 years old. No fever, back pain, changes in bowel habits, or other symptoms reported at this time. She does state that she took a home test which was negative. MD elicited complaint: abdominal pain (Suprapubic) Pertinent past history: none Onset (ago): day(s) Pain Consistency: constant Location: Suprapubic Severity: mild Quality: cramping Radiation: none Exacerbating factors: nothing Relieving factors: nothing Associated Symptoms: Reports nausea and vomiting; Denies bloating, change in stool character, chills, constipation, diarrhea, dysuria, fever(s) and hematochezia Related Data Previous Rx's Medication Instructions Recorded olanzapine 2.5 mg tablet (Zyprexa) 2.5 mg PO BID #10 tabs 08/03/23 pantoprazole 40 mg tablet,delayed 40 mg PO DAILY #30 tabs 09/02/23 release (Protonix) promethazine 25 mg tablet 25 mg PO Q6H PRN nausea and 09/02/23 vomiting #20 tabs doxycycline hyclate 100 mg capsule 100 mg PO BID 7 days #14 caps 11/10/23 metronidazole 500 mg tablet 500 mg PO BID 7 days #14 tabs 11/10/23 norelgestromin 150 mcg-e.estradiol See Rx Instructions .Route 12/07/23 35 mcg/24 hr weekly transderm .COMPLEX #3 patches patch (Xulane) Allergies Allergy/AdvReac Type Severity Reaction Status Date / Time marijuana (cannabis) Allergy ALGY-Anaphy Verified 01/03/24 18:43 laxis Review of Systems 2 General: Reports: 10 or more systems reviewed and unremarkable except in HPI and below Const: Denies: fever(s), chills, change in appetite, change in weight or diaphoresis ENMT: Denies: throat pain or hoarseness Card: Denies: chest pain, palpitations or lightheadedness Resp: Denies: dyspnea, productive cough or wheezing GI: Reports: abdominal pain, nausea and vomiting; Denies: diarrhea, constipation, bloating, change in stool character or hematochezia : Reports: urinary hesitancy; Denies: flank pain, difficulty voiding, dysuria, urinary frequency or urinary urgency Musc: Denies: neck pain or back pain Skin/Breast: Denies: rash or new lesions Neuro: Denies: headache(s) or dizziness PFSH ED 2 PFSH: Medical History Chronic abdominal pain Asthma PCOS (polycystic ovarian syndrome) Surgical History History of esophagogastroduodenoscopy (EGD) Age 21- [place] teeth removed H/O laparoscopy Family History Father Diabetes Hypertension Mother No problems noted. Grandfather Heart disease Thyroid disease Denies family history of Colon cancer Ovarian cancer Prostate cancer Breast cancer Uterine cancer Stroke Social History Smoking and tobacco/nicotine status: former use of tobacco/nicotine Physical Exam 2 Const: COMMON NORMALS: no acute distress, average body habitus, patient oriented x3, no limitations, healthy appearing, alert and well nourished G ENERAL APPEARANCE: cooperative and comfortable ORIENTATION/CONSCIOUSNESS: Yes awake HENMT: COMMON NORMALS: normocephalic, atraumatic, hearing grossly normal bilaterally, external ears normal, Normal external nose present, Normal nasal mucous membranes and turbinates present and moist oral mucous membranes HEAD & SCALP: normocephalic and atraumatic NOSE: Normal external nose present and Normal nasal mucous membranes and turbinates present EXTERNAL EAR: Yes external ears normal Eye: COMMON NORMALS: Equal, round and reactive pupils present, EOMs intact bilaterally, conjunctivae normal and normal visual mishra by confrontation C ONJUNCTIVA: Yes conjunctivae normal PUPIL: Yes Equal, round and reactive pupils present Neck/C-Spine: COMMON NORMALS: full ROM, supple, no meningeal signs and no JVD Resp: COMMON NORMALS: normal respiratory effort, No retractions, No use of accessory muscles and clear to auscultation bilaterally AUSCULTATION: clear to auscultation bilaterally, no crackles, no rales, no rhonchi and no wheezes Cardio: COMMON NORMALS: no JVD, regular rate, regular rhythm, S1 normal heart sound present, S2 normal heart sound present, No gallops present (Cardio), No clicks present (Cardio), No murmurs present (Cardio), No rub (Cardio) and Peripheral pulses 2+ throughout RATE: regular rate RHYTHM: regular rhythm HEART SOUNDS: S1 normal heart sound present and S2 normal heart sound present PERIPHERAL PULSES: Peripheral pulses 2+ throughout GI: COMMON NORMALS: Normal to inspection, nondistended, normoactive bowel sounds present, Soft to palpation, No hepatosplenomegaly present and no masses AUSCULTATION: Yes normoactive bowel sounds PALPATION: Yes Soft to palpation, Yes Tenderness to palpation present (GI) (Mild suprapubic tenderness to palpation), No Guarding due to palpation present (GI), No Rigid due to palpation and Yes No hepatosplenomegaly present RECTAL EXAM: deferred : COMMON NORMALS: Yes no CVA tenderness BLADDER/KIDNEY EXAM: Yes no CVA tenderness Back/Pelvis: COMMON NORMALS: no CVA tenderness Extremity: COMMON NORMALS: normal to inspection and full ROM Neuro: COMMON NORMALS: patient oriented x3, moves all extremities, no focal motor deficits and no sensory deficits noted SENSORIUM/ORIENTATION: Yes alert MENINGEAL SIGNS: Yes no meningeal signs Psych: COMMON NORMALS: mental status grossly normal, cooperative and speech normal SPEECH: Yes normal speech Skin: COMMON NORMALS: no rashes or lesions noted GENERAL SKIN EXAM: no rashes or lesions noted Course 2 Vital Signs: Vital signs: Vital Signs Temperature 98.2 F 01/03/24 18:40 Pulse Rate 98 01/03/24 18:40 Respiratory Rate 18 01/03/24 20:32 Blood Pressure 123/82 01/03/24 18:40 Pulse Oximetry 99 01/03/24 18:40 Oxygen Delivery Me thod Room Air 01/03/24 20:32 MDM - Abdominal Pain Medical Decision Making Patient presented with a few days of pelvic pain, reported to me a history of PCOS as well as recurrent UTIs. States that this pain felt like a severe UTI. Her labs and urinalysis today were negative, as well as a negative serum . Spoke with the patient, she elects for close follow-up and does not want imaging at this time. Reasons to return were discussed, she will be discharged home. Lab Data 01/03/24 20:01 01/03/24 20:01 Labs/Radiology: Laboratory Results WBC 5.33 10^3/uL (3.29-11.43) 01/03/24 20:01 RBC 4.82 10^6/uL (3.85-5.65) 01/03/24 20: Hgb 14.10 g/dL (11.27-16.99) 01/03/24 20:01 Hct 43.4 % (36-47) 01/03/24 20: MCV 90.0 fl (85-98) 01/03/24 20: MCH 29.3 pg (27-33) 01/03/24 20:01 MCHC 32.5 g/dL (30-55) 01/03/24 20:01 RDW 11.6 % (12.1-15.1) L 01/03/24 20:01 Plt Count 239 10^3/cmm (157-399) 01/03/24 20:01 MPV 10.7 fL (7.4-10.4) H 01/03/24 20:01 Neut % (Auto) 60.9 % 01/03/24 20:01 Lymph % (Auto) 24.8 % 01/03/24 20:01 [place] % (Auto) 12.0 % 01/03/24 20:01 Eos % (Auto) 1.5 % 01/03/24 20:01 Baso % (Auto) 0.8 % 01/03/24 20:01 Neut # (Auto) 3.25 10^3/uL (1.8-7.7) 01/03/24 20:01 Lymph # (Auto) 1.3 10^3/uL (0.8-4.8) 01/03/24 20:01 [place] # (Auto) 0.6 10^3/uL (0.2-0.9) 01/03/24 20:01 Eos # (Auto) 0.1 10^3/uL (0.0-0.8) 01/03/24 20:01 Baso # (Auto) 0.0 10^3/uL (0.0-0.1) 01/03/24 20:01 Nucleated RBC % (auto) 0 % 01/03/24 20:01 Nucleated RBCs # 0.0 /100WBC 01/03/24 20:01 Sodium 139 mmol/L (136-145) 01/03/24 20:01 Potassium 4.1 mmol/L (3.5-5.1) 01/03/24 20:01 Chloride 103 mmol/L (98-107) 01/03/24 20:01 Carbon Dioxide 28 mmol/L (22-29) 01/03/24 20:01 Anion Gap 12.1 (5-19) 01/03/24 20:01 BUN 8 mg/dL (6-20) 01/03/24 20:01 Creatinine 0.6 mg/dL (0.5-0.9) 01/03/24 20:01 GFR Calculation 126.2 mL/min (90-130) 01/03/24 20:01 Glucose 85 mg/dL (65-115) 01/03/24 20:01 Calculated Osmolality 286 mOsm/kg (285-295) 01/03/24 20:01 Calcium 9.4 mg/dL (8.5-10.5) 01/03/24 20:01 Total Bilirubin 0.3 mg/dL (0.15-1.2) 01/03/24 20:01 AST 17 U/L (0-32) 01/03/24 20:01 ALT 12 U/L (0-33) 01/03/24 20:01 Alkaline Phosphatase 69 U/L (35-105) 01/03/24 20:01 Total Protein 7.2 g/dL (6.6-8.7) 01/03/24 20:01 Albumin 4.6 g/dL (3.5-5.2) 01/03/24 20:01 Globulin 2.6 g/dL (1.3-4.6) 01/03/24 20: Lipase 28 U/L (13-60) 01/03/24 20:01 HCG, Qual Negative (Negative) 01/03/24 20:01 Urine Color Yellow (Yellow) 01/03/24 20:30 Urine Appearance Cloudy (CLEAR) A 01/03/24 20:30 Urine pH 7.5 (5-7) 01/03/24 20:30 Ur Specific [place] 1.021 (1.005-1.030) 01/03/24 20:30 Urine Protein Negative (Negative) 01/03/24 20:30 Urine Glucose (UA) Negative (Normal) 01/03/24 20:30 Urine Ketones Negative (Negative) 01/03/24 20:30 Urine Blood Negative (Negative) 01/03/24 20:30 Urine Nitrate Negative (Negative) 01/03/24 20:30 Urine Bilirubin Negative (Negative) 01/03/24 20:30 Urine Urobilinogen 1.0 mg/dL (Negative) 01/03/24 20:30 Ur Leukocyte Esterase Negative (Negative) 01/03/24 20:30 Urine RBC 0-2 /hpf (0-2) 01/03/24 20:30 Urine WBC 0-5 /hpf (0-5) 01/03/24 20:30 Ur Squamous Epith Cells 0-5 /hpf (0-5) 01/03/24 20:30 Amorphous Sediment Not Reportable 01/03/24 20:30 Urine Bacteria None seen /hpf (NONE) 01/03/24 20:30 Hyaline Casts 0-4 /lpf H 01/03/24 20:30 No radiology studies performed this visit Discharge Plan Discharge Patient Disposition: Home Clinical Impression: Pelvic pain Condition: Stable Prescriptions: No Action doxycycline hyclate 100 mg capsule 100 mg PO BID 7 Days Qty: 14 0RF metronidazole 500 mg tablet 500 mg PO BID 7 Days Qty: 14 0RF norelgestromin-ethin.estradiol [Xulane] 150-35 mcg/24 hr patch weekly See Rx Instructions .ROUTE .COMPLEX Qty: 3 0RF Dose Instruction: APPLY 1 PATCH WEEKLY FOR 3 WEEKS OF A 4 WEEK CYCLE Rx Instructions: APPLY 1 PATCH WEEKLY FOR 3 WEEKS OF A 4 WEEK CYCLE Zyprexa 2.5 mg tablet 2.5 mg PO BID Qty: 10 0RF Protonix 40 mg tablet,delayed release (DR/EC) 40 mg PO DAILY Qty: 30 0RF promethazine 25 mg tablet 25 mg PO Q6H PRN (Reason: nausea and vomiting) Qty: 20 0RF Discharge Orders: Discharge ED (Routine); Ordered 01/03/24 Ordered By: Reuben Huang Referrals: True Patel MD [Primary Care Provider] - Discharge Diet: Usual diet Discharge Activity: Increase activity as tolerated Patient Instructions: Ruptured Ovarian Cyst (ED) Activity Restrictions/Additional Instructions: Follow-up with your primary care provider for further evaluation as discussed. Return with any significant worsening of pain or new concerning symptoms may have. May take Tylenol and ibuprofen for pain relief. Coding Level of Care Code ED Agency Development Manager for Santino Christensen
[2024-01-03 20:23] LABS: Basophils % 0.8 %; Eosinophils # 0.1 10^3/uL (0.0-0.8); Eosinophils % 1.5 %; Hematocrit 43.4 % (36-47); Lymphocytes # 1.3 10^3/uL (0.8-4.8); Lymphocytes % 24.8 %; Mean Corpuscular HGB Conc 32.5 g/dL (30-55); Mean Corpuscular Hemoglobin 29.3 pg (27-33); Mean Platelet Volume 10.7 fL (7.4-10.4); Monocytes # 0.6 10^3/uL (0.2-0.9); Neutrophils # 3.25 10^3/uL (1.8-7.7); Neutrophils % 60.9 %; Nucleated Red Blood Cells % 0 %; Platelet Count 239 10^3/cmm (157-399); Red Blood Count 4.82 10^6/uL (3.85-5.65); Red Cell Distribution Width 11.6 % (12.1-15.1); White Blood Count 5.33 10^3/uL (3.29-11.43)
[2024-01-03 20:32] VITALS: RESP 18
[2024-01-03 20:42] LABS: Bilirubin Urine Negative (Negative); Blood Urine Negative (Negative); Glucose Urine UA Negative (Normal); Ketones Urine Negative (Negative); Leukocyte Esterase Urine Negative (Negative); Nitrate Urine Negative (Negative); Protein Urine Negative (Negative); Specific Gravity, Urine 1.021 (1.005-1.030); Urine Appearance Cloudy (CLEAR); Urine Color Yellow (Yellow); pH Urine 7.5 (5-7)
[2024-01-03 20:46] LABS: Add Urine Microscopic? YES; Bacteria Urine None Seen /hpf; Hyaline Casts Urine 0-4 /lpf; RBC Urine 0-2 /hpf (0-2); Squamous Epithelial Cell Urine 0-5 /hpf (0-5); WBC Urine 0-5 /hpf (0-5)
[2024-01-03 20:49] LABS: Alanine Aminotransferase 12 U/L (0-33); Albumin Level 4.6 g/dL (3.5-5.2); Alkaline Phosphatase 69 U/L (35-105); Anion Gap 12.1 (5-19); Aspartate Amino Transferase 17 U/L (0-32); Blood Urea Nitrogen 8 mg/dL (6-20); Calcium 9.4 mg/dL (8.5-10.5); Carbon Dioxide 28 mmol/L (22-29); Chloride 103 mmol/L (98-107); Creatinine Clr Calc Pharmacy 143.8906; Globulin 2.6 g/dL (1.3-4.6); Glomerular Filtration Rate 126.2 mL/min (90-130); Glucose 85 mg/dL (65-115); Lipase 28 U/L (13-60); Osmolality Calculated 286 mOsm/kg (285-295); Potassium 4.1 mmol/L (3.5-5.1); Sodium 139 mmol/L (136-145); Total Bilirubin 0.3 mg/dL (0.15-1.2); Total Protein 7.2 g/dL (6.6-8.7)
[2024-01-03 21:00] LABS: HCG, Serum Qual Negative (Negative)
[2024-01-03 21:14] VITALS: RESP 14
== END 2024-01-03 21:16 | disposition home or self-care (01) ==
PROVIDERS: Emergency Medicine; Emergency Provider Physician Assistant; PCP Family Medicine Adult Medicine
DX: R10.2 Pelvic and perineal pain (principal); R11.2 Nausea with vomiting, unspecified; Z87.440 Personal history of urinary (tract) infections; E28.2 Polycystic ovarian syndrome
CPT/HCPCS: 36415; 80053; 81001; 83690; 84703; 85025; 99283

== ENCOUNTER → 2024-02-01 11:18 | Outpatient (BNVA) | payer BC, SELFPAY | PROVIDERS: PCP Family Medicine Adult Medicine | DX: R39.9 Unspecified symptoms and signs involving the genitourinary system (principal) | CPT/HCPCS: 81000 ==

== ENCOUNTER 2024-04-25 23:16 | Emergency (ER) | payer BC, SELFPAY ==
[2024-04-25 23:24] VITALS: BP 122/87; PULSE 76; RESP 14; TEMP 36.4; O2SAT 100
--- NOTE | 2024-04-25 23:50 | ED_ITS ---
HPI - General Adult General: Chief complaint: General Medical Stated complaint: Bites on Neck\Pain Time Seen by Provider: 04/25/24 23:42 History of Present Illness: Patient presents emergency room with what she thinks are insect bites that woke her up from sleep. Slightly pruritic and painful. There is a small red bump just above her left breast and on her left clavicle area. No surrounding erythema. No signs of infection. Related Data Previous Rx's Medication Instructions Recorded olanzapine 2.5 mg tablet (Zyprexa) 2.5 mg PO BID #10 tabs 08/03/23 pantoprazole 40 mg tablet,delayed 40 mg PO DAILY #30 tabs 09/02/23 release (Protonix) promethazine 25 mg tablet 25 mg PO Q6H PRN nausea and 09/02/23 vomiting #20 tabs norelgestromin 150 mcg-e.estradiol See Rx Instructions .Route 12/07/23 35 mcg/24 hr weekly transderm .COMPLEX #3 patches patch (Xulane) ibuprofen 800 mg tablet 800 mg PO Q8H #30 tabs 02/01/24 Allergies Allergy/AdvReac Type Severity Reaction Status Date / Time marijuana (cannabis) Allergy ALGY-Anaphy Verified 04/25/24 23:29 laxis Review of Systems Narrative: Constitutional symptoms: Negative except as documented in HPI. Skin symptoms: Negative except as documented in HPI. Eye symptoms: Negative except as documented in HPI. ENMT symptoms: Negative except as documented in HPI. Respiratory symptoms: Negative except as documented in HPI. Cardiovascular symptoms: Negative except as documented in HPI. Gastrointestinal symptoms: Negative except as documented in HPI. Genitourinary symptoms: Negative except as documented in HPI. Musculoskeletal symptoms: Negative except as documented in HPI. Neurologic symptoms: Negative except as documented in HPI. Psychiatric symptoms: Negative except as documented in HPI. Endocrine symptoms: Negative except as documented in HPI. PFS ED PFSH: Medical History Chronic abdominal pain Asthma PCOS (polycystic ovarian syndrome) Surgical History History of esophagogastroduodenoscopy (EGD) Age 21- [place] teeth removed H/O laparoscopy Family History Father Diabetes Hypertension Mother No problems noted. Grandfather Heart disease Thyroid disease Denies family history of Colon cancer Ovarian cancer Prostate cancer Breast cancer Uterine cancer Stroke Social History Smoking and tobacco/nicotine status: former use of tobacco/nicotine Female Reproductive History: Date of last menstrual period: 04/02/24 Physical Exam Narrative: EXAM NARRATIVE: General: Alert, no acute distress. Skin: warm and dry Head: Normocephalic Neck: Trachea midline Eye: Extraocular movements are intact. Ears, nose, mouth and throat: Oral mucosa moist Respiratory: Respirations are non-labored Musculoskeletal: Normal ROM Neurological: Alert and oriented, No focal neurological deficit observed. Psychiatric: Cooperative, appropriate mood & affect. Course Vital Signs: Vital signs: Vital Signs Temperature 97.5 F L 04/25/24 23:24 Pulse Rate 76 04/25/24 23:24 Respiratory Rate 14 04/25/24 23:24 Blood Pressure 122/87 04/25/24 23:24 Pulse Oximetry 100 04/25/24 23:24 MDM - General Adult Medical Decision Making Assessment and plan: Insect sting ?Diclofenac and Benadryl in the emergency room - Discharged home - Discussed plan with patient. Answered any questions. - Evaluation and treatment of this problem were appropriate in the emergency setting. No radiology studies performed this visit Discharge Plan Discharge Patient Disposition: Home Clinical Impression: Insect bite Condition: Stable Prescriptions: No Action ibuprofen 800 mg tablet 800 mg PO Q8H Qty: 30 0RF norelgestromin-ethin.estradiol [Xulane] 150-35 mcg/24 hr patch weekly See Rx Instructions .ROUTE .COMPLEX Qty: 3 0RF Dose Instruction: APPLY 1 PATCH WEEKLY FOR 3 WEEKS OF A 4 WEEK CYCLE Rx Instructions: APPLY 1 PATCH WEEKLY FOR 3 WEEKS OF A 4 WEEK CYCLE Zyprexa 2.5 mg tablet 2.5 mg PO BID Qty: 10 0RF Protonix 40 mg tablet,delayed release (DR/EC) 40 mg PO DAILY Qty: 30 0RF promethazine 25 mg tablet 25 mg PO Q6H PRN (Reason: nausea and vomiting) Qty: 20 0RF Discharge Orders: Discharge ED (Routine); Ordered 04/25/24 Ordered By: Emilee Rivera Discharge Diet: Usual diet Discharge Activity: Increase activity as tolerated Patient Instructions: Insect Bite or Sting (ED), Opioid Safety, Pain Management Activity Restrictions/Additional Instructions: Thank you for choosing [facility] for your healthcare needs today. Please realize this is an emergency room and that we are providing you with a medical screening exam and this may not be complete and all inclusive of all the testing and or work up that you may need to determine your ailment or severity of your illness. You have been screened and evaluated and felt safe for discharge. Health conditions do change or evolve sometimes and as such it is important that you follow up with your Primary Doctor to be re checked, 3-5 days is a general good time frame for follow up. You are always welcome to return to the ED for re assessment if your symptoms are worsening or you have new concerns Coding Level of Care Code ED Golf Stud Riveter for Santino Christensen
[2024-04-26] MEDS: TRAMadol 50 mg Tablet PO (00:06)
[2024-04-26] MEDS: diphenhydrAMINE 50 mg Capsule PO (00:06)
[2024-04-26 00:10] VITALS: BP 116/69; PULSE 75; RESP 16; O2SAT 99
== END 2024-04-26 00:09 | disposition home or self-care (01) ==
PROVIDERS: Emergency Provider Emergency Medicine
DX: S10.96XA Insect bite of unspecified part of neck, initial encounter (principal); W57.XXXA Bitten or stung by nonvenomous insect and other nonvenomous arthropods, initial encounter
CPT/HCPCS: 99283; Q0163

== ENCOUNTER 2024-06-02 09:36 | Emergency (ER) | payer BC, SELFPAY ==
[2024-06-02 09:44] VITALS: BP 116/81; PULSE 88; RESP 17; TEMP 36.6; O2SAT 100; BMI 17.2
--- NOTE | 2024-06-02 09:58 | XR_ITS ---
WS: [id number] Portable AP upright chest, 06/02/2024 Clinical Data: cough Comparison: None. Findings: No nodules, masses or effusions are seen. The heart is normal. The pulmonary vascularity is not increased. No pneumonia or pneumothorax is seen. XR/XR chest 1V portable [id number] Impression: Negative chest.
[2024-06-02 10:41] LABS: Basophils % 0.2 %; Eosinophils % 0.3 %; Hematocrit 43.1 % (36-47); Lymphocytes # 1.4 10^3/uL (0.8-4.8); Lymphocytes % 21.9 %; Mean Corpuscular HGB Conc 33.6 g/dL (30-55); Mean Corpuscular Hemoglobin 29.7 pg (27-33); Mean Corpuscular Volume 88.1 fl (85-98); Mean Platelet Volume 11.1 fL (7.4-10.4); Monocytes # 0.5 10^3/uL (0.2-0.9); Monocytes % 7.3 %; Neutrophils # 4.44 10^3/uL (1.8-7.7); Nucleated Red Blood Cells % 0 %; Platelet Count 201 10^3/cmm (157-399); Red Blood Count 4.89 10^6/uL (3.85-5.65); Red Cell Distribution Width 11.9 % (12.1-15.1); White Blood Count 6.34 10^3/uL (3.29-11.43)
[2024-06-02 10:44] LABS: Bilirubin Urine Negative (Negative); Blood Urine Negative (Negative); Glucose Urine UA Negative (Normal); Ketones Urine 4+ (Negative); Leukocyte Esterase Urine Negative (Negative); Nitrate Urine Negative (Negative); Protein Urine 1+ (Negative); Specific Gravity, Urine 1.025 (1.005-1.030); Urine Appearance Cloudy (CLEAR); Urine Color Yellow (Yellow)
[2024-06-02 10:53] LABS: HCG, Serum Qual Positive (Negative)
[2024-06-02 10:58] LABS: Add Urine Microscopic? YES; Bacteria Urine TRACE /hpf; Mucus Urine TRACE /hpf; RBC Urine 0-4 /hpf (0-2); Squamous Epithelial Cell Urine 20 /hpf (0-5); UA Manual Slide Review YES; WBC Urine 15-25 /hpf (0-5)
[2024-06-02 11:01] VITALS: BP 112/64; PULSE 64; RESP 18; O2SAT 99
[2024-06-02 11:05] LABS: Alanine Aminotransferase 11 U/L (0-33); Albumin Level 4.4 g/dL (3.5-5.2); Alkaline Phosphatase 44 U/L (35-105); Anion Gap 19.6 (5-19); Aspartate Amino Transferase 17 U/L (0-32); Blood Urea Nitrogen 7 mg/dL (6-20); Calcium 9.7 mg/dL (8.5-10.5); Carbon Dioxide 18 mmol/L (22-29); Chloride 103 mmol/L (98-107); Globulin 3.1 g/dL (1.3-4.6); Glomerular Filtration Rate 154.3 mL/min (90-130); Glucose 69 mg/dL (65-115); Lipase 46 U/L (13-60); Osmolality Calculated 280 mOsm/kg (285-295); Potassium 3.6 mmol/L (3.5-5.1); Sodium 137 mmol/L (136-145); Total Bilirubin 0.5 mg/dL (0.15-1.2); Total Protein 7.5 g/dL (6.6-8.7)
--- NOTE | 2024-06-02 12:16 | US_ITS ---
WS: [id number] EARLY OBSTETRICAL ULTRASOUND (<14 WEEKS). HISTORY: vag bleeding, abd pain COMPARISON: None available. Transabdominal and transvaginal imaging submitted. Single intrauterine gestational sac is identified. Cardiac activity at 174 BPM. Pass Christian-rump length measures 1.9 cm which corresponds to a gestation of 8w3d. Normal-appearing yolk sac and amnion demonstrated. No subchorionic hemorrhage. No free fluid. Ovaries are both identified. RIGHT ovary is slightly heterogeneous and enlarged. May be a collapsing corpus luteum. Normal vascularity to each ovary. US/US OB <= 14 weeks fetus [id number] IMPRESSION: 1. Single intrauterine gestation of 8w3d with an EDC of 01/09/2025. 2. Normal heart rate. 3. No subchorionic hemorrhage.
[2024-06-02 13:13] VITALS: BP 115/87; O2SAT 98
[2024-06-02 14:42] VITALS: BP 115/87; PULSE 65; RESP 20; O2SAT 98
--- NOTE | 2024-06-02 18:00 | ED_ITS ---
HPI - General Adult 2 General: Chief complaint: General Medical Stated complaint: cough, n/v Time Seen by Provider: 06/02/24 11:04 History of Present Illness: This patient is a 24-year-old white female who presents to the emergency department stating that she is just not been feeling well for about a month now. She has had a cough. She has been vomiting occasionally. She states she has had some vaginal bleeding when she coughs. She states her last menstrual period was May 11. She has a history of PCOS and asthma. Associated symptoms: Reports vomiting Related Data Home Medications ?Medication ?Instructions ?Recorded ?Confirmed ibuprofen 200 mg tablet (Advil) 400 mg PO Q6H PRN Feve r Or Pain 06/02/24 06/02/24 Allergies Allergy/AdvReac Type Severity Reaction Status Date / Time marijuana (cannabis) Allergy ALGY-Anaphy Verified 04/25/24 23:29 laxis Review of Systems 2 General: Reports: 10 or more systems reviewed and unremarkable except in HPI and below Resp: Reports: non-productive cough GI: Reports: vomiting : Reports: vaginal bleeding PFSH ED 2 PFSH: Medical History Chronic abdominal pain Asthma PCOS (polycystic ovarian syndrome) Surgical History History of esophagogastroduodenoscopy (EGD) Age 21- [place] teeth removed H/O laparoscopy Family History Father Diabetes Hypertension Mother No problems noted. Grandfather Heart disease Thyroid disease Denies family history of Colon cancer Ovarian cancer Prostate cancer Breast cancer Uterine cancer Stroke Social History Smoking and tobacco/nicotine status: former use of tobacco/nicotine Physical Exam 2 Const: COMMON NORMALS: no acute distress, patient oriented x3 and no limitations GENERAL APPEARANCE: cooperative and comfortable HENMT: COMMON NORMALS: normocephalic, atraumatic, Normal nasal mucous membranes and turbinates present, moist oral mucous membranes and oropharynx normal HEAD & SCALP: normal to inspection, normocephalic and atraumatic F BASIM & SINUS: normal facial exam NOSE: Normal nasal mucous membranes and turbinates present Eye: COMMON NORMALS: Equal, round and reactive pupils present, EOMs intact bilaterally and conjunctivae normal GENERAL EYE: appearance normal, both eyes and all related structures CONJUNCTIVA: Yes conjunctivae normal PUPIL: Yes Equal, round and reactive pupils present Neck/C-Spine: COMMON NORMALS: supple and no JVD Chest: COMMONS NORMALS: normal inspection of the chest Resp: COMMON NORMALS: normal respiratory effort and clear to auscultation bilaterally AUSCULTATION: clear to auscultation bilaterally Cardio: COMMON NORMALS: no JVD, regular rate, regular rhythm, No gallops present (Cardio), No murmurs present (Cardio) and No rub (Cardio) RATE: r egular rate RHYTHM: regular rhythm GI: COMMON NORMALS: Normal to inspection, nondistended, normoactive bowel sounds present, Soft to palpation and non-tender AUSCULTATION: Yes normoactive bowel sounds PALPATION: Yes Soft to palpation : COMMON NORMALS: Yes no CVA tenderness BLADDER/KIDNEY EXAM: Yes no CVA tenderness Back/Pelvis: COMMON NORMALS: no CVA tenderness and thoracic and lumbar spine normal to inspection Extremity: COMMON NORMALS: normal to inspection Neuro: COMMON NORMALS: patient oriented x3 and CN's II-XII intact bilaterally Psych: COMMON NORMALS: mental status grossly normal, Normal thought process present and cooperative THOUGHT PROCESS: Normal thought process present Skin: COMMON NORMALS: no rashes or lesions noted, turgor normal and no jaundice GENERAL SKIN EXAM: no rashes or lesions noted and turgor normal Course 2 Vital Signs: Vital signs: Vital Signs Temperature 97.8 F 06/02/24 09:44 Pulse Rate 65 06/02/24 14:42 Respiratory Rate 20 H 06/02/24 14:42 Blood Pressure 115/87 06/02/24 14:42 Pulse Oximetry 98 06/02/24 14:42 Oxygen Delivery Me thod Room Air 06/02/24 09:44 MDM - General Adult Medical Decision Making CBC was normal. CMP normal. test was positive. Urine analysis was contaminated. Quantitative hCG level was 101,420. Pelvic ultrasound revealed fetus at 8 weeks 2 days with a heart rate of 173. No abnormalities. Results were discussed with the patient. Recommended she take daily vitamin. Recommended she contact an saw offbearer and schedule her first appointment soon as possible. She was discharged in stable condition. Lab Data 06/02/24 10:21 06/02/24 10:21 Radiology Impressions Chest X-Ray 06/02/24 09:58 Impression: Negative chest. Ultrasound 06/02/24 12:16 IMPRESSION: 1. Single intrauterine gestation of 8w3d with an EDC of 01/09/2025. 2. Normal heart rate. 3. No subchorionic hemorrhage. Laboratory Results WBC 6.34 10^3/uL (3.29-11.43) 06/02/24 10:21 RBC 4.89 10^6/uL (3.85-5.65) 06/02/24 10:21 Hgb 14.50 g/dL (11.27-16.99) 06/02/24 10:21 Hct 43.1 % (36-47) 06/02/24 10:21 MCV 88.1 fl (85-98) 06/02/24 10:21 MCH 29.7 pg (27-33) 06/02/24 10:21 MCHC 33.6 g/dL (30-55) 06/02/24 10:21 RDW 11.9 % (12.1-15.1) L 06/02/24 10:21 Plt Count 201 10^3/cmm (157-399) 06/02/24 10:21 MPV 11.1 fL (7.4-10.4) H 06/02/24 10:21 Neut % (Auto) 70.0 % 06/02/24 10:21 Lymph % (Auto) 21.9 % 06/02/24 10:21 Bosque % (Auto) 7.3 % 06/02/24 10:21 Eos % (Auto) 0.3 % 06/02/24 10:21 Baso % (Auto) 0.2 % 06/02/24 10:21 Neut # (Auto) 4.44 10^3/uL (1.8-7.7) 06/02/24 10:21 Lymph # (Auto) 1.4 10^3/uL (0.8-4.8) 06/02/24 10:21 Bosque # (Auto) 0.5 10^3/uL (0.2-0.9) 06/02/24 10:21 Eos # (Auto) 0.0 10^3/uL (0.0-0.8) 06/02/24 10:21 Baso # (Auto) 0.0 10^3/uL (0.0-0.1) 06/02/24 10:21 Nucleated RBC % (auto) 0 % 06/02/24 10:21 Nucleated RBCs # 0.0 /100WBC 06/02/24 10:21 Sodium 137 mmol/L (136-145) 06/02/24 10:21 Potassium 3.6 mmol/L (3.5-5.1) 06/02/24 10:21 Chloride 103 mmol/L (98-107) 06/02/24 10:21 Carbon Dioxide 18 mmol/L (22-29) L 06/02/24 10:21 Anion Gap 19.6 (5-19) H 06/02/24 10:21 BUN 7 mg/dL (6-20) 06/02/24 10:21 Creatinine 0.5 mg/dL (0.5-0.9) 06/02/24 10:21 GFR Calculation 154.3 mL/min (90-130) H 06/02/24 10:21 Glucose 69 mg/dL (65-115) 06/02/24 10:21 Calculated Osmolality 280 mOsm/kg (285-295) L 06/02/24 10:21 Calcium 9.7 mg/dL (8.5-10.5) 06/02/24 10:21 Total Bilirubin 0.5 mg/dL (0.15-1.2) 06/02/24 10:21 AST 17 U/L (0-32) 06/02/24 10:21 ALT 11 U/L (0-33) 06/02/24 10:21 Alkaline Phosphatase 44 U/L (35-105) 06/02/24 10:21 Total Protein 7.5 g/dL (6.6-8.7) 06/02/24 10:21 Albumin 4.4 g/dL (3.5-5.2) 06/02/24 10:21 Globulin 3.1 g/dL (1.3-4.6) 06/02/24 10:21 Lipase 46 U/L (13-60) 06/02/24 10:21 HCG, Qual Positive (Negative) H 06/02/24 10:21 Ser , Semi-Qnt 137670.00 mIU/mL 06/02/24 10:21 Urine Color Yellow (Yellow) 06/02/24 10:36 Urine Appearance Cloudy (CLEAR) A 06/02/24 10:36 Urine pH 6.0 (5-7) 06/02/24 10:36 Ur Specific [place] 1.025 (1.005-1.030) 06/02/24 10:36 Urine Protein 1+ (Negative) A 06/02/24 10:36 Urine Glucose (UA) Negative (Normal) 06/02/24 10:36 Urine Ketones 4+ (Negative) 06/02/24 10:36 Urine Blood Negative (Negative) 06/02/24 10:36 Urine Nitrate Negative (Negative) 06/02/24 10:36 Urine Bilirubin Negative (Negative) 06/02/24 10:36 Urine Urobilinogen 1.0 mg/dL (Negative) 06/02/24 10:36 Ur Leukocyte Esterase Negative (Negative) 06/02/24 10:36 Urine RBC 0-4 /hpf (0-2) H 06/02/24 10:36 Urine WBC 15-25 /hpf (0-5) H 06/02/24 10:36 Ur Squamous Epith Cells 20 /hpf (0-5) 06/02/24 10:36 Amorphous Sediment Not Reportable 06/02/24 10:36 Urine Bacteria Trace /hpf (NONE) 06/02/24 10:36 Urine Mucus Trace /hpf 06/02/24 10:36 Urine Yeast 1+ /hpf H 06/02/24 10:36 All radiology interpretation(s) finalized by discharge Discharge Plan Discharge Patient Disposition: Home Clinical Impression: Qualifiers: Weeks of gestation: 8 weeks Qualified Code(s): Z3A.08 - 8 weeks gestation of Condition: Stable Prescriptions: No Action ibuprofen [Advil] 200 mg Tablet 400 mg PO Q6H PRN (Reason: Fever Or Pain) Discharge Orders: Discharge ED (Routine); Ordered 06/02/24 Ordered By: Remi Clifford Patient Instructions: (ED) Activity Restrictions/Additional Instructions: Schedule an appointment with saw offbearer. Print Language: Romanian Coding Level of Care Code ED Software Engineer Developer for Santino Christensen
== END 2024-06-02 14:43 | disposition home or self-care (01) ==
PROVIDERS: Physician Assistant; Emergency Provider Emergency Medicine
DX: O21.9 Vomiting of pregnancy, unspecified (principal); Z3A.08 8 weeks gestation of pregnancy; Z87.891 Personal history of nicotine dependence
CPT/HCPCS: 36415; 71045; 76801; 80053; 81001; 83690; 84702; 84703; 85025; 99284

== ENCOUNTER → 2024-06-06 12:57 | Outpatient (BNVA) | payer BC, SELFPAY | PROVIDERS: Visit Provider Nurse Practitioner Women's Health | DX: Z34.90 Encounter for supervision of normal pregnancy, unspecified, unspecified trimester (principal) | CPT/HCPCS: 84315; 86850; 86900 ==

== ENCOUNTER 2024-06-23 22:43 | Emergency (ER) | payer BC, SELFPAY ==
[2024-06-23 22:47] VITALS: BP 112/82; PULSE 84; RESP 16; TEMP 36.7; O2SAT 97; BMI 18.1
--- NOTE | 2024-06-24 00:18 | USR_ITS ---
PROCEDURE INFORMATION: Exam: US , Limited Exam date and time: 06/24/2024 12:25 AM Age: 24 years old Clinical indication: Lmp or gestational age (in weeks): 11w1d; Antepartum complications; Other: Cramping; ; Additional info: Cramping, 11 weeks preg. LABS AND CLINICAL REPORTS: Gestational age (Established): 11 w 1 d Estimated due date (Established): 01/11/2025 TECHNIQUE: Imaging protocol: Real-time ultrasound of the maternal uterus with image documentation. Exam focused on the clinical indication. COMPARISON: US OB <= 14 weeks fetus [id number] 06/02/2024 1:19 PM FINDINGS: Gestation: Single live intrauterine with a sonographic age of 11 weeks 4 days. heart rate: 153 bpm MATERNAL: Cervix: Cervical length measures 3.1 cm. US/US OB limited [id number] IMPRESSION: Single live intrauterine .
--- NOTE | 2024-06-24 01:56 | ED_ITS ---
HPI - General: Chief complaint: Abdominal Pain Stated complaint: 11 Weeks Preg Cramping on R side Time Seen by Provider: 06/23/24 23:51 Source: patient and family Mode of arrival: ambulatory Limitations: no limitations History of Present Illness: Patient comes up with right lower quadrant/pelvic pain. No fever history of PCOS concern for possible ovarian cyst or issues with . No vaginal bleeding. No fever, no anorexia, no nausea. Related Data : 2 Previous Rx's ?Medication ?Instructions ?Recorded metoclopramide HCl 5 mg tablet 5 mg PO DAILY #30 tabs 06/06/24 (Reglan) vits no.126-ferrous fum 1 tab PO DAILY #90 ta bs 06/06/24 28 mg iron-folic acid 800 mcg tablet (Classic ) Allergies Allergy/AdvReac Type Severity Reaction Status Date / Time marijuana (cannabis) Allergy ALGY-Anaphy Verified 06/06/24 09:23 laxis Review of Systems General: Reports: 10 or more systems reviewed and unremarkable except in HPI and below PFSH ED PFSH: Medical History Chronic abdominal pain Asthma PCOS (polycystic ovarian syndrome) Surgical History History of esophagogastroduodenoscopy (EGD) Age 21- [place] teeth removed H/O laparoscopy Family History Father Diabetes Hypertension Mother No problems noted. Grandfather Heart disease Thyroid disease Denies family history of Colon cancer Ovarian cancer Prostate cancer Breast cancer Uterine cancer Stroke Social History Smoking and tobacco/nicotine status: former use of tobacco/nicotine Female Reproductive History: : 2 Physical Exam Const: COMMON NORMALS: no acute distress, average body habitus, patient oriented x3, healthy appearing, alert and well nourished GENERAL APPEARANCE: well kempt and well developed HENMT: COMMON NORMALS: normocephalic, atraumatic, external ears normal and moist oral mucous membranes HEAD & SCALP: normocephalic and atraumatic EXTERNAL EAR: Yes external ears normal Eye: COMMON NORMALS: Equal, round and reactive pupils present, EOMs intact bilaterally and conjunctivae normal CONJUNCTIVA: Yes conjunctivae normal PUPIL: Yes Equal, round and reactive pupils present Neck/C-Spine: COMMON NORMALS: full ROM, no lymphadenopathy and supple Chest: CHEST: Yes Symmetrical chest wall rise and No Surgical scars present (Chest) Resp: COMMON NORMALS: normal respiratory effort, No retractions, No use of accessory muscles and clear to auscultation bilaterally AUSCULTATION: clear to auscultation bilaterally Cardio: COMMON NORMALS: regular rate, regular rhythm, S1 normal heart sound present, S2 normal heart sound present, No gallops present (Cardio), No clicks present (Cardio), No murmurs present (Cardio) and No rub (Cardio) RATE: regular rate RHYTHM: regular rhythm HEART SOUNDS: S1 normal heart sound present, S2 normal heart sound present and no murmurs PERIPHERAL PULSES: other (Radial pulses 2+ and symmetric) GI: COMMON NORMALS: Soft to palpation and no masses INSPECTION: No abdominal distension PALPATION: Yes Soft to palpation, Yes Tenderness to palpation present (GI) (Mild suprapubic tenderness little bit right of midline no guarding or rebou), No Guarding due to palpation present (GI) and No Rebound tenderness present : COMMON NORMALS: Yes no CVA tenderness BLADDER/KIDNEY EXAM: Yes no CVA tenderness Back/Pelvis: COMMON NORMALS: no CVA tenderness Extremity: COMMON NORMALS: normal to inspection, full ROM, capillary refill normal and no clubbing, cyanosis or edema Neuro: COMMON NORMALS: patient oriented x3 SENSORIUM/ORIENTATION: Yes alert Psych: APPEARANCE: Yes well kempt Skin: COMMON NORMALS: no rashes or lesions noted, no wounds, turgor normal and no jaundice GENERAL SKIN EXAM: no rashes or lesions noted and turgor normal Course Vital Signs: Vital signs: Vital Signs Temperature 98.0 F 06/23/24 22:47 Pulse Rate 84 06/23/24 22:47 Respiratory Rate 16 06/23/24 22:47 Blood Pressure 112/82 06/23/24 22:47 Pulse Oximetry 97 06/23/24 22:47 Oxygen Delivery Me thod Room Air 06/23/24 22:47 MDM - OB/Uterine Contractions Medical Decision Making 24-year-old female 11 weeks with pelvic pain. Second first was early miscarriage. Patient reports pain in the superior right lower pelvis. History of PCOS. Patient ultrasound shows normal , suspect round ligament pain. Heart rate normal, blood pressure normal, no anorexia. On exam is more midline, clinically not consistent with other right lower quadrant pains like appendicitis or torsion. Medical Records I reviewed the patient's medical records. Lab Data I reviewed the patient's lab results. Radiology Impressions Obstetrics Ultrasound 06/24/24 00:18 IMPRESSION: Single live intrauterine . All radiology interpretation(s) finalized by discharge ED provider radiology interpretation(s): Ultrasound with fetus measuring appropriately good movement and good heart rate of 153 Discharge Plan Discharge Patient Disposition: Home Clinical Impression: Pelvic pain affecting in first trimester, antepartum Condition: Stable Prescriptions: No Action Classic 28 mg iron- 800 mcg tablet 1 tab PO DAILY Qty: 90 2RF Rx Instructions: take one tab daily metoclopramide HCl [Reglan] 5 mg tablet 5 mg PO DAILY Qty: 30 1RF Rx Instructions: take one tab daily Discharge Orders: Discharge ED (Routine); Ordered 06/24/24 Ordered By: Cade Schofield Discharge Diet: Usual diet Discharge Activity: Resume usual activity Patient Instructions: Round Ligament Pain Activity Restrictions/Additional Instructions: Follow-up with your CHOPPER GUN OPERATOR as scheduled or sooner if needed Print Language: Maldivian Coding Level of Care Code ED Tier Lift Operator for Santino Christensen
[2024-06-24 02:07] VITALS: BP 111/75; PULSE 68; RESP 16; O2SAT 100
== END 2024-06-24 02:07 | disposition home or self-care (01) ==
PROVIDERS: Emergency Provider Emergency Medicine
DX: O26.891 Other specified pregnancy related conditions, first trimester (principal); R10.2 Pelvic and perineal pain; Z3A.11 11 weeks gestation of pregnancy
CPT/HCPCS: 76815; 99284

== ENCOUNTER → 2024-06-27 14:36 | Outpatient (BNVA) | payer BC, SELFPAY | PROVIDERS: Visit Provider Nurse Practitioner Women's Health | DX: Z34.00 Encounter for supervision of normal first pregnancy, unspecified trimester (principal) | CPT/HCPCS: 84315; 84443; 86592; 86762; 86803; 87086; 87340; 87491; 87591; 87661; 87806 ==

== ENCOUNTER → 2024-07-06 15:49 | Outpatient (BNVA) | payer BC, SELFPAY | PROVIDERS: Visit Provider Obstetrics & Gynecology | DX: Z34.90 Encounter for supervision of normal pregnancy, unspecified, unspecified trimester (principal) | CPT/HCPCS: 84315; 87624 ==

== ENCOUNTER → 2024-07-25 13:14 | Outpatient (BNVA) | payer BC, SELFPAY | PROVIDERS: Visit Provider Nurse Practitioner Women's Health | DX: Z34.90 Encounter for supervision of normal pregnancy, unspecified, unspecified trimester (principal) | CPT/HCPCS: 82105; 84315 ==

== ENCOUNTER 2024-08-04 11:33 | Emergency (ER) | payer BC, SELFPAY ==
[2024-08-04 12:11] VITALS: BP 121/86; PULSE 97; RESP 16; TEMP 36.7; O2SAT 97; BMI 19.8
[2024-08-04 12:35] LABS: Basophils % 0.2 %; Eosinophils % 0.4 %; Hematocrit 38.7 % (36-47); Lymphocytes # 0.9 10^3/uL (0.8-4.8); Lymphocytes % 10.8 %; Mean Corpuscular Hemoglobin 29.8 pg (27-33); Mean Platelet Volume 10.8 fL (7.4-10.4); Monocytes # 0.5 10^3/uL (0.2-0.9); Monocytes % 6.2 %; Neutrophils # 6.96 10^3/uL (1.8-7.7); Nucleated Red Blood Cells % 0 %; Platelet Count 215 10^3/cmm (157-399); Red Blood Count 4.16 10^6/uL (3.85-5.65); Red Cell Distribution Width 13.1 % (12.1-15.1); White Blood Count 8.49 10^3/uL (3.29-11.43)
[2024-08-04 12:55] LABS: Alanine Aminotransferase 11 U/L (0-33); Albumin Level 3.5 g/dL (3.5-5.2); Alkaline Phosphatase 68 U/L (35-105); Aspartate Amino Transferase 16 U/L (0-32); Blood Urea Nitrogen 9 mg/dL (6-20); Calcium 8.9 mg/dL (8.5-10.5); Carbon Dioxide 21 mmol/L (22-29); Chloride 104 mmol/L (98-107); Creatinine Clr Calc Pharmacy 208.9667; Globulin 2.8 g/dL (1.3-4.6); Glomerular Filtration Rate 199.6 mL/min (90-130); Glucose 95 mg/dL (65-115); Lipase 38 U/L (13-60); Osmolality Calculated 280 mOsm/kg (285-295); Sodium 136 mmol/L (136-145); Total Bilirubin 0.2 mg/dL (0.15-1.2); Total Protein 6.3 g/dL (6.6-8.7)
--- NOTE | 2024-08-04 13:02 | ED_ITS ---
HPI - Abdominal Pain 2 General: Chief Complaint: Abdominal Pain Stated Complaint: abd pain Time Seen by Provider: 08/04/24 12:56 Source: patient Mode of arrival: ambulatory Limitations: no limitations History of Present Illness: 24-year-old female who is currently 17 w eeks states she has been having some cramping lower abdominal pain. States it suprapubic in nature rates it a 4 out of 10 states been going on for weeks denies any severe pain denies any right lower quadrant pain denies any bleeding or vaginal discharge. She has had no vomiting. Associated Symptoms: Denies chills, diarrhea, dysuria, fever(s), nausea and vomiting Related Data Previous Rx's ?Medication ?Instructions ?Recorded metoclopramide HCl 5 mg tablet 5 mg PO DAILY #30 tabs 06/06/24 (Reglan) vits no.126-ferrous fum 1 tab PO DAILY #90 ta bs 06/06/24 28 mg iron-folic acid 800 mcg tablet (Classic ) Allergies Allergy/AdvReac Type Severity Reaction Status Date / Time marijuana (cannabis) Allergy ALGY-Anaphy Verified 07/25/24 12:21 laxis Review of Systems 2 Const: Denies: fever(s), chills, body aches or change in appetite ENMT: Denies: throat pain or dental pain Card: Denies: chest pain Resp: Denies: dyspnea GI: Reports: abdominal pain; Denies: nausea, vomiting or diarrhea : Denies: dysuria Musc: Denies: neck pain or back pain Skin/Breast: Denies: rash Neuro: Denies: headache(s) PFSH ED 2 PFSH: Medical History Chronic abdominal pain Asthma PCOS (polycystic ovarian syndrome) Surgical History History of esophagogastroduodenoscopy (EGD) Age 21- [place] teeth removed H/O laparoscopy Family History Father Diabetes Hypertension Mother No problems noted. Grandfather Heart disease Thyroid disease Denies family history of Colon cancer Ovarian cancer Prostate cancer Breast cancer Uterine cancer Stroke Social History Smoking and tobacco/nicotine status: former use of tobacco/nicotine Physical Exam 2 Const: COMMON NORMALS: no acute distress, patient oriented x3 and healthy appearing HENMT: COMMON NORMALS: normocephalic and atraumatic HEAD & SCALP: n ormocephalic and atraumatic Eye: COMMON NORMALS: conjunctivae normal CONJUNCTIVA: Yes conjunctivae normal Neck/C-Spine: COMMON NORMALS: full ROM and supple Chest: COMMONS NORMALS: normal inspection of the chest Resp: COMMON NORMALS: normal respiratory effort, No retractions, No use of accessory muscles and clear to auscultation bilaterally AUSCULTATION: clear to auscultation bilaterally Cardio: COMMON NORMALS: regular rate, regular rhythm and No murmurs present (Cardio) RATE: regular rate RHYTHM: regular rhythm GI: COMMON NORMALS: Normal to inspection, nondistended, normoactive bowel sounds present, Soft to palpation, non-tender and no masses PALPATION: Yes Soft to palpation Extremity: COMMON NORMALS: normal to inspection and full ROM Neuro: COMMON NORMALS: patient oriented x3, moves all extremities and no focal motor deficits Psych: COMMON NORMALS: mental status grossly normal, Normal thought process present and cooperative THOUGHT PROCESS: Normal thought process present Skin: COMMON NORMALS: no rashes or lesions noted and no wounds GENERAL SKIN EXAM: no rashes or lesions noted Course 2 Vital Signs: Vital signs: Vital Signs Temperature 98.1 F 08/04/24 12:11 Pulse Rate 82 08/04/24 13:05 Respiratory Rate 16 08/04/24 12:11 Blood Pressure 126/77 08/04/24 13:05 Pulse Oximetry 96 08/04/24 13:05 Oxygen Delivery Me thod Room Air 08/04/24 12:11 MDM - Abdominal Pain Medical Decision Making Patient presents with abdominal pain in her exam here is benign no signs appendicitis did bedside ultrasound showed IUP consistent dates heart tones 140s she has no UTI no bleeding she stable for discharge she is follow-up with her OB return if worsening. Medical Records I reviewed the patient's medical records. Lab Data I reviewed the patient's lab results. 08/04/24 12:15 08/04/24 12:15 Labs/Radiology: Laboratory Results WBC 8.49 10^3/uL (3.29-11.43) 08/04/24 12:15 RBC 4.16 10^6/uL (3.85-5.65) 08/04/24 12:15 Hgb 12.40 g/dL (11.27-16.99) 08/04/24 12:15 Hct 38.7 % (36-47) 08/04/24 12:15 MCV 93.0 fl (85-98) 08/04/24 12:15 MCH 29.8 pg (27-33) 08/04/24 12:15 MCHC 32.0 g/dL (30-55) 08/04/24 12:15 RDW 13.1 % (12.1-15.1) 08/04/24 12:15 Plt Count 215 10^3/cmm (157-399) 08/04/24 12:15 MPV 10.8 fL (7.4-10.4) H 08/04/24 12:15 Neut % (Auto) 82.0 % 08/04/24 12:15 Lymph % (Auto) 10.8 % 08/04/24 12:15 [place] % (Auto) 6.2 % 08/04/24 12:15 Eos % (Auto) 0.4 % 08/04/24 12:15 Baso % (Auto) 0.2 % 08/04/24 12:15 Neut # (Auto) 6.96 10^3/uL (1.8-7.7) 08/04/24 12:15 Lymph # (Auto) 0.9 10^3/uL (0.8-4.8) 08/04/24 12:15 [place] # (Auto) 0.5 10^3/uL (0.2-0.9) 08/04/24 12:15 Eos # (Auto) 0.0 10^3/uL (0.0-0.8) 08/04/24 12:15 Baso # (Auto) 0.0 10^3/uL (0.0-0.1) 08/04/24 12:15 Nucleated RBC % (auto) 0 % 08/04/24 12:15 Nucleated RBCs # 0.0 /100WBC 08/04/24 12:15 Sodium 136 mmol/L (136-145) 08/04/24 12:15 Potassium 4.0 mmol/L (3.5-5.1) 08/04/24 12:15 Chloride 104 mmol/L (98-107) 08/04/24 12:15 Carbon Dioxide 21 mmol/L (22-29) L 08/04/24 12:15 Anion Gap 15.0 (5-19) 08/04/24 12:15 BUN 9 mg/dL (6-20) 08/04/24 12:15 Creatinine 0.4 mg/dL (0.5-0.9) L 08/04/24 12:15 GFR Calculation 199.6 mL/min (90-130) H 08/04/24 12:15 Glucose 95 mg/dL (65-115) 08/04/24 12:15 Calculated Osmolality 280 mOsm/kg (285-295) L 08/04/24 12:15 Calcium 8.9 mg/dL (8.5-10.5) 08/04/24 12:15 Total Bilirubin 0.2 mg/dL (0.15-1.2) 08/04/24 12:15 AST 16 U/L (0-32) 08/04/24 12:15 ALT 11 U/L (0-33) 08/04/24 12:15 Alkaline Phosphatase 68 U/L (35-105) 08/04/24 12:15 Total Protein 6.3 g/dL (6.6-8.7) L 08/04/24 12:15 Albumin 3.5 g/dL (3.5-5.2) 08/04/24 12:15 Globulin 2.8 g/dL (1.3-4.6) 08/04/24 12:15 Lipase 38 U/L (13-60) 08/04/24 12:15 Urine Color Yellow (Yellow) 08/04/24 13:02 Urine Appearance Clear (CLEAR) 08/04/24 13:02 Urine pH 6.0 (5-7) 08/04/24 13:02 Ur Specific [place] 1.021 (1.005-1.030) 08/04/24 13:02 Urine Protein Negative (Negative) 08/04/24 13:02 Urine Glucose (UA) Negative (Normal) 08/04/24 13:02 Urine Ketones Negative (Negative) 08/04/24 13:02 Urine Blood Negative (Negative) 08/04/24 13:02 Urine Nitrate Negative (Negative) 08/04/24 13:02 Urine Bilirubin Negative (Negative) 08/04/24 13:02 Urine Urobilinogen 1.0 mg/dL (Negative) 08/04/24 13:02 Ur Leukocyte Esterase Negative (Negative) 08/04/24 13:02 Urine RBC 0-2 /hpf (0-2) 08/04/24 13:02 Urine WBC 0-5 /hpf (0-5) 08/04/24 13:02 Ur Squamous Epith Cells 0-5 /hpf (0-5) 08/04/24 13:02 Amorphous Sediment Not Reportable 08/04/24 13:02 Urine Bacteria None seen /hpf (NONE) 08/04/24 13:02 Hyaline Casts 0-4 /lpf H 08/04/24 13:02 All radiology interpretation(s) finalized by discharge Discharge Plan Discharge Patient Disposition: Home Clinical Impression: Abdominal pain in Condition: Stable Prescriptions: No Action Classic 28 mg iron- 800 mcg tablet 1 tab PO DAILY Qty: 90 2RF Rx Instructions: take one tab daily metoclopramide HCl [Reglan] 5 mg tablet 5 mg PO DAILY Qty: 30 1RF Rx Instructions: take one tab daily Discharge Orders: Discharge ED (Routine); Ordered 08/04/24 Ordered By: Cl Dyson Discharge Diet: Advance as tolerated Discharge Activity: Resume usual activity Patient Instructions: Abdominal Pain (ED) Print Language: Portuguese Coding Level of Care Code ED Embedder for Santino Christensen
[2024-08-04 13:05] VITALS: BP 126/77; PULSE 82; O2SAT 96
[2024-08-04 13:12] LABS: Bilirubin Urine Negative (Negative); Blood Urine Negative (Negative); Glucose Urine UA Negative (Normal); Ketones Urine Negative (Negative); Leukocyte Esterase Urine Negative (Negative); Nitrate Urine Negative (Negative); Protein Urine Negative (Negative); Specific Gravity, Urine 1.021 (1.005-1.030); Urine Appearance Clear (CLEAR); Urine Color Yellow (Yellow)
[2024-08-04 13:14] LABS: Add Urine Microscopic? YES; Bacteria Urine None Seen /hpf; Hyaline Casts Urine 0-4 /lpf; RBC Urine 0-2 /hpf (0-2); Squamous Epithelial Cell Urine 0-5 /hpf (0-5); WBC Urine 0-5 /hpf (0-5)
[2024-08-04] MEDS: acetaminophen 325 mg Tablet 650 MG PO (13:23)
[2024-08-04 13:26] VITALS: BP 126/77; PULSE 80; O2SAT 100
== END 2024-08-04 13:26 | disposition home or self-care (01) ==
PROVIDERS: Emergency Provider Emergency Medicine
DX: O26.892 Other specified pregnancy related conditions, second trimester (principal); Z3A.17 17 weeks gestation of pregnancy; Z87.891 Personal history of nicotine dependence
CPT/HCPCS: 36415; 80053; 81001; 83690; 85025; 99283; J9999

== ENCOUNTER 2024-08-13 18:44 | Emergency (ER) | payer BC, MEDICAID, SELFPAY ==
[2024-08-13 19:04] VITALS: BP 134/89; PULSE 81; TEMP 36.8; O2SAT 98; BMI 19.8
[2024-08-13 19:23] LABS: Basophils % 0.2 %; Eosinophils # 0.1 10^3/uL (0.0-0.8); Eosinophils % 0.7 %; Lymphocytes # 1.5 10^3/uL (0.8-4.8); Lymphocytes % 16.9 %; Mean Corpuscular HGB Conc 31.9 g/dL (30-55); Mean Corpuscular Hemoglobin 29.9 pg (27-33); Mean Corpuscular Volume 93.7 fl (85-98); Mean Platelet Volume 10.6 fL (7.4-10.4); Monocytes # 0.7 10^3/uL (0.2-0.9); Monocytes % 7.7 %; Neutrophils # 6.54 10^3/uL (1.8-7.7); Nucleated Red Blood Cells % 0 %; Platelet Count 227 10^3/cmm (157-399); Red Blood Count 3.95 10^6/uL (3.85-5.65); Red Cell Distribution Width 13.2 % (12.1-15.1); White Blood Count 8.83 10^3/uL (3.29-11.43)
--- NOTE | 2024-08-13 20:26 | W.ED.PREGNAN ---
HPI - General: Chief complaint: Vaginal Bleeding Stated complaint: 8Wks Preg\Bleeding Time Seen by Provider: 08/13/24 19:57 Source: patient Mode of arrival: ambulatory Limitations: no limitations History of Present Illness: 44-year-old female who is currently 18 weeks states she noticed some very minimal vaginal spotting today. She denies any abdominal pain denies any passing clots denies any worsening improving factors. Associated symptoms: Deny abdominal pain, headache(s), nausea or vomiting Related Data Previous Rx's ?Medication ?Instructions ?Recorded metoclopramide HCl 5 mg tablet 5 mg PO DAILY #30 tabs 06/06/24 (Reglan) vits no.126-ferrous fum 1 tab PO DAILY #90 tabs 06/06/24 28 mg iron-folic acid 800 mcg tablet (Classic ) Allergies Allergy/AdvReac Type Severity Reaction Status Date / Time marijuana (cannabis) Allergy ALGY-Anaphy Verified 08/13/24 19:09 laxis Review of Systems Const: Denies: fever(s), chills, body aches or change in appetite ENMT: Denies: throat pain or dental pain Card: Denies: chest pain Resp: Denies: dyspnea GI: Denies: abdominal pain, nausea, vomiting or diarrhea : Reports: vaginal bleeding Musc: Denies: neck pain or back pain Skin/Breast: Denies: rash Neuro: Denies: headache(s) PFSH ED PFSH: Medical History Chronic abdominal pain Asthma PCOS (polycystic ovarian syndrome) Surgical History History of esophagogastroduodenoscopy (EGD) Age 21- [place] teeth removed H/O laparoscopy Family History Father Diabetes Hypertension Mother No problems noted. Grandfather Heart disease Thyroid disease Denies family history of Colon cancer Ovarian cancer Prostate cancer Breast cancer Uterine cancer Stroke Social History Smoking and tobacco/nicotine status: former use of tobacco/nicotine Physical Exam Const: COMMON NORMALS: no acute distress, patient oriented x3 and healthy appearing HENMT: COMMON NORMALS: normocephalic and atraumatic HEAD & SCALP: normocephalic and atraumatic Eye: COMMON NORMALS: conjunctivae normal CONJUNCTIVA: Yes conjunctivae normal Neck/C-Spine: COMMON NORMALS: full ROM and supple Chest: COMMONS NORMALS: normal inspection of the chest Resp: COMMON NORMALS: normal respiratory effort Cardio: COMMON NORMALS: regular rate RATE: regular rate GI: COMMON NORMALS: Normal to inspection, nondistended, normoactive bowel sounds present, Soft to palpation and non-tender PALPATION: Yes Soft to palpation Neuro: COMMON NORMALS: patient oriented x3, moves all extremities and no focal motor deficits Psych: COMMON NORMALS: mental status grossly normal, Normal thought process present and cooperative THOUGHT PROCESS: Normal thought process present Skin: COMMON NORMALS: no rashes or lesions noted and no wounds GENERAL SKIN EXAM: no rashes or lesions noted Course Vital Signs: Vital signs: Vital Signs Temperature 98.3 F 08/13/24 19:04 Pulse Rate 81 08/13/24 19:04 Blood Pressure 134/89 08/13/24 19:04 Pulse Oximetry 98 08/13/24 19:04 Oxygen Delivery Me thod Room Air 08/13/24 19:04 MDM - OB/Uterine Contractions Medical Decision Making Patient presents here with threatened miscarriage did bedside ultrasound showed IUP consistent with dates heart tones 148 she stable for discharge. Medical Records I reviewed the patient's medical records. Lab Data 08/13/24 19:16 Laboratory Results WBC 8.83 10^3/uL (3.29-11.43) 08/13/24 19:16 RBC 3.95 10^6/uL (3.85-5.65) 08/13/24 19:16 Hgb 11.80 g/dL (11.27-16.99) 08/13/24 19:16 Hct 37.0 % (36-47) 08/13/24 19:16 MCV 93.7 fl (85-98) 08/13/24 19:16 MCH 29.9 pg (27-33) 08/13/24 19:16 MCHC 31.9 g/dL (30-55) 08/13/24 19:16 RDW 13.2 % (12.1-15.1) 08/13/24 19:16 Plt Count 227 10^3/cmm (157-399) 08/13/24 19:16 MPV 10.6 fL (7.4-10.4) H 08/13/24 19:16 Neut % (Auto) 74.0 % 08/13/24 19:16 Lymph % (Auto) 16.9 % 08/13/24 19:16 [place] % (Auto) 7.7 % 08/13/24 19:16 Eos % (Auto) 0.7 % 08/13/24 19:16 Baso % (Auto) 0.2 % 08/13/24 19:16 Neut # (Auto) 6.54 10^3/uL (1.8-7.7) 08/13/24 19:16 Lymph # (Auto) 1.5 10^3/uL (0.8-4.8) 08/13/24 19:16 [place] # (Auto) 0.7 10^3/uL (0.2-0.9) 08/13/24 19:16 Eos # (Auto) 0.1 10^3/uL (0.0-0.8) 08/13/24 19:16 Baso # (Auto) 0.0 10^3/uL (0.0-0.1) 08/13/24 19:16 Nucleated RBC % (auto) 0 % 08/13/24 19:16 Nucleated RBCs # 0.0 /100WBC 08/13/24 19:16 Ser , Semi-Qnt 35702.00 mIU/mL 08/13/24 19:16 No radiology studies performed this visit Discharge Plan Discharge Patient Disposition: Home Clinical Impression: Threatened miscarriage Condition: Stable Prescriptions: No Action Classic 28 mg iron- 800 mcg tablet 1 tab PO DAILY Qty: 90 2RF Rx Instructions: take one tab daily metoclopramide HCl [Reglan] 5 mg tablet 5 mg PO DAILY Qty: 30 1RF Rx Instructions: take one tab daily Discharge Orders: Discharge ED (Routine); Ordered 08/13/24 Ordered By: Cl Dyson Discharge Diet: Advance as tolerated Discharge Activity: Resume usual activity Patient Instructions: Threatened Miscarriage (ED) Print Language: [place] Islander Coding Level of Care Code ED Slide Forming Machine Operator for Santino Christensen
[2024-08-13 20:41] VITALS: BP 105/71; PULSE 73; O2SAT 98
[2024-08-13 20:43] VITALS: BP 105/71; PULSE 73; O2SAT 98
== END 2024-08-13 20:44 | disposition home or self-care (01) ==
PROVIDERS: Emergency Provider Emergency Medicine
DX: O20.0 Threatened abortion (principal); Z3A.18 18 weeks gestation of pregnancy; Z87.891 Personal history of nicotine dependence
CPT/HCPCS: 36415; 84702; 85025; 99283

== ENCOUNTER → 2024-08-23 14:22 | Outpatient (BNVA) | payer BC, MEDICAID, SELFPAY | PROVIDERS: Visit Provider Obstetrics & Gynecology | DX: Z36.9 Encounter for antenatal screening, unspecified (principal); O35.03X0 Maternal care for (suspected) central nervous system malformation or damage in fetus, choroid plexus cysts, not applicable or unspecified | CPT/HCPCS: 76805 ==

== ENCOUNTER → 2024-09-04 16:02 | Outpatient (BNVA) | payer BC, MEDICAID, SELFPAY | PROVIDERS: Visit Provider Nurse Practitioner Women's Health | DX: Z34.90 Encounter for supervision of normal pregnancy, unspecified, unspecified trimester (principal) | CPT/HCPCS: 84315 ==

== ENCOUNTER → 2024-09-20 13:45 | Outpatient (BNVA) | payer BC, MEDICAID, SELFPAY | PROVIDERS: Visit Provider Nurse Practitioner Women's Health | DX: Z34.90 Encounter for supervision of normal pregnancy, unspecified, unspecified trimester (principal) | CPT/HCPCS: 84315 ==

== ENCOUNTER 2024-09-22 14:47 | Outpatient (CLI) | payer BC, MEDICAID, SELFPAY ==
[2024-09-22 15:02] VITALS: BP 119/64; PULSE 90
[2024-09-22 15:12] VITALS: BMI 22.5
[2024-09-22 15:15] LABS: Bilirubin Urine Negative (Negative); Blood Urine Negative (Negative); Glucose Urine UA Negative (Normal); Ketones Urine Negative (Negative); Leukocyte Esterase Urine Negative (Negative); Nitrate Urine Negative (Negative); Protein Urine Negative (Negative); Specific Gravity, Urine 1.005 (1.005-1.030); Urine Appearance Clear (CLEAR); Urine Color Yellow (Yellow); Urobilinogen Urine 0.2 mg/dL (Negative); pH Urine 6.5 (5-7)
[2024-09-22 15:20] VITALS: BP 104/60; PULSE 97
[2024-09-22 15:27] LABS: Bacteria Urine None Seen /hpf; RBC Urine 0-2 /hpf (0-2); Squamous Epithelial Cell Urine 0-5 /hpf (0-5); WBC Urine 0-5 /hpf (0-5)
[2024-09-22 15:35] VITALS: BP 103/65; PULSE 90
[2024-09-22 15:40] LABS: Add Urine Culture? No
[2024-09-22 15:51] VITALS: BP 103/65; PULSE 90; RESP 15
== END 2024-09-22 15:51 | disposition home or self-care (01) ==
LOC: OPOB 14:47 → OBGYN 14:48
PROVIDERS: Visit Provider Obstetrics & Gynecology
DX: O26.899 Other specified pregnancy related conditions, unspecified trimester (principal); Z3A.00 Weeks of gestation of pregnancy not specified; R11.10 Vomiting, unspecified; R51.9 Headache, unspecified
CPT/HCPCS: 81001; 99211

== ENCOUNTER 2024-09-25 10:35 | Outpatient (CLI) | payer BC, MEDICAID, SELFPAY ==
[2024-09-25 10:46] VITALS: BMI 22.7
[2024-09-25 10:52] VITALS: BP 115/64; PULSE 96
[2024-09-25 11:07] VITALS: BP 111/67; PULSE 98
[2024-09-25 11:22] VITALS: BP 113/64; PULSE 96
[2024-09-25 11:37] VITALS: BP 115/71; PULSE 106
[2024-09-25 11:45] LABS: Bilirubin Urine Negative (Negative); Blood Urine Negative (Negative); Glucose Urine UA Negative (Normal); Ketones Urine Negative (Negative); Leukocyte Esterase Urine Trace (Negative); Nitrate Urine Negative (Negative); Protein Urine Negative (Negative); Specific Gravity, Urine 1.012 (1.005-1.030); Urine Appearance Clear (CLEAR); Urine Color Yellow (Yellow)
[2024-09-25 11:48] LABS: Bacteria Urine Trace /hpf; RBC Urine 0-2 /hpf (0-2); WBC Urine 0-5 /hpf (0-5)
[2024-09-25 11:52] VITALS: BP 114/64; PULSE 92
[2024-09-25 11:57] LABS: Add Urine Culture? No
[2024-09-25 12:07] VITALS: BP 111/67; PULSE 102
== END 2024-09-25 12:29 | disposition home or self-care (01) ==
LOC: OPOB 10:38 → OBGYN 10:39
PROVIDERS: Visit Provider Obstetrics & Gynecology
DX: O26.899 Other specified pregnancy related conditions, unspecified trimester (principal); Z3A.00 Weeks of gestation of pregnancy not specified; R10.9 Unspecified abdominal pain
CPT/HCPCS: 81001; 83986; 99211

== ENCOUNTER 2024-09-28 15:07 | Outpatient (CLI) | payer BC, MEDICAID, SELFPAY ==
[2024-09-28 15:14] VITALS: BMI 23.0
[2024-09-28 15:22] VITALS: BP 136/81; PULSE 101
[2024-09-28 15:31] LABS: Bilirubin Urine Negative (Negative); Blood Urine Negative (Negative); Glucose Urine UA Negative (Normal); Ketones Urine Trace (Negative); Leukocyte Esterase Urine Negative (Negative); Nitrate Urine Negative (Negative); Protein Urine Trace (Negative); Specific Gravity, Urine 1.027 (1.005-1.030); Urine Appearance Clear (CLEAR); Urine Color Yellow (Yellow); pH Urine 5.5 (5-7)
[2024-09-28 15:34] LABS: Bacteria Urine 1+ /hpf; RBC Urine 0-2 /hpf (0-2)
[2024-09-28 15:37] VITALS: BP 138/85; PULSE 104
[2024-09-28 15:39] LABS: Add Urine Culture? No
[2024-09-28 15:52] VITALS: BP 112/73; PULSE 109
[2024-09-28 16:20] LABS: Basophils % 0.2 %; Eosinophils # 0.1 10^3/uL (0.0-0.8); Eosinophils % 1.3 %; Hematocrit 35.3 % (36-47); Lymphocytes # 1.1 10^3/uL (0.8-4.8); Lymphocytes % 10.6 %; Mean Corpuscular HGB Conc 32.9 g/dL (30-55); Mean Corpuscular Hemoglobin 30.3 pg (27-33); Mean Corpuscular Volume 92.2 fl (85-98); Mean Platelet Volume 9.9 fL (7.4-10.4); Monocytes # 0.9 10^3/uL (0.2-0.9); Monocytes % 8.1 %; Neutrophils # 8.25 10^3/uL (1.8-7.7); Neutrophils % 79.1 %; Nucleated Red Blood Cells % 0 %; Platelet Count 223 10^3/cmm (157-399); Red Blood Count 3.83 10^6/uL (3.85-5.65); Red Cell Distribution Width 12.8 % (12.1-15.1); White Blood Count 10.44 10^3/uL (3.29-11.43)
[2024-09-28 16:37] LABS: Alanine Aminotransferase 14 U/L (0-33); Albumin Level 3.3 g/dL (3.5-5.2); Alkaline Phosphatase 77 U/L (35-105); Anion Gap 15.8 (5-19); Aspartate Amino Transferase 17 U/L (0-32); Blood Urea Nitrogen 11 mg/dL (6-20); Calcium 8.3 mg/dL (8.5-10.5); Carbon Dioxide 20 mmol/L (22-29); Chloride 103 mmol/L (98-107); Creatinine Clr Calc Pharmacy 295.4727; Globulin 2.6 g/dL (1.3-4.6); Glomerular Filtration Rate 278.2 mL/min (90-130); Glucose 97 mg/dL (65-115); Osmolality Calculated 279 mOsm/kg (285-295); Potassium 3.8 mmol/L (3.5-5.1); Sodium 135 mmol/L (136-145); Total Bilirubin 0.2 mg/dL (0.15-1.2); Total Protein 5.9 g/dL (6.6-8.7)
[2024-09-28 16:50] VITALS: BP 105/63; PULSE 86
[2024-09-28 17:10] VITALS: BP 100/60; PULSE 87
--- NOTE | 2024-09-28 17:12 | P.TNLD_ITS ---
OB L&D Triage Visit Information: Date of evaluation: 09/28/24 Comments/Additional reason(s) for visit: 24-year-old female G G2, P0 with KERVIN 01/09/2025 currently 25.2 weeks gestation. Patient was seen in labor and delivery triage with complaints of right sided abdominal pain and decreased movement. She denies any trauma, vaginal bleeding or leakage of fluid. She now admits to good movement since observation. Patient also complains of a red rash which she has had for 3 days. She denies any food allergies, no walking in trees or grass are high foliage areas so she denies any contact with poison mirella or poison oak. States she is pretty much been in the house to stay out of the heat. She does admit to using boyfriend's body wash which is different than what she you regular usually uses. Advised her to discontinue use of new body wash and continue with her familiar brand. Encouraged use of Benadryl and calamine if needed. Patient denies any shortness of breath or chest pain. EFM?reassuring VSS, afebrile Skin?patient's face, chest, arms and legs have a red papular rash Abdomen?soft, gravid Slight right upper quadrant tenderness to palpation lateral to umbilicus. No guarding or rigidity noted. No suprapubic tenderness to palpation and no CVA tenderness. The uterus is soft and nontender. External monitoring, lab and physical exam all reviewed with patient. Possibility of appendicitis reviewed but currently doubtful as her WBC count is normal and no exquisite tenderness on exam. But encouraged patient to return if pain increases. Patient verbalizes understanding Evaluation: Baseline heart rate: 120 monitor accelerations: Present 10x10 Laboratory results: Laboratory Tests 09/28/24 09/28/24 15:24 16:16 WBC 10.44 RBC 3.83 L Hgb 11.60 Hct 35.3 L MCV 92.2 MCH 30.3 MCHC 32.9 RDW 12.8 Plt Count 223 MPV 9.9 Neut % (Auto) 79.1 Lymph % (Auto) 10.6 [place] % (Auto) 8.1 Eos % (Auto) 1.3 Baso % (Auto) 0.2 Neut # (Auto) 8.25 H Lymph # (Auto) 1.1 [place] # (Auto) 0.9 Eos # (Auto) 0.1 Baso # (Auto) 0.0 Nucleated RBC % (a uto) 0 Nucleated RBCs # 0.0 Sodium 135 L Potassium 3.8 Chloride 103 Carbon Dioxide 20 L Anion Gap 15.8 BUN 11 Creatinine 0.3 L GFR Calculation 278.2 H Glucose 97 Calculated Osmolal ity 279 L Calcium 8.3 L Total Bilirubin 0.2 AST 17 ALT 14 Alkaline Phosphata se 77 Total Protein 5.9 L Albumin 3.3 L Globulin 2.6 Urine Color Yellow Urine Appearance Clear Urine pH 5.5 Ur Specific Gravit y 1.027 Urine Protein Trace A Urine Glucose (UA) Negative Urine Ketones Trace Urine Blood Negative Urine Nitrate Negative Urine Bilirubin Negative Urine Urobilinogen 1.0 Ur Leukocyte Glo ase Negative Urine RBC 0-2 Urine WBC 6-10 Ur Squamous Epith Cells 11-20 H Amorphous Sediment Not Reportable Urine Bacteria 1+ H Hyaline Casts 0.40 Vital signs: Vital Signs - 24 hr 09/28/24 15:22 09/28/24 15:37 09/28/24 15:52 Pulse Rate 101 H 104 H 109 H Blood Pressure 136/81 138/85 112/73 09/28/24 16:50 Pulse Rate 86 Blood Pressure 105/63 Care KERVIN Calculator Estimated Delivery Date Method Current WG Current Estimate 01/09/25 Ultrasound #1 25w 2d Specific Issues/Plans * * NAUSEA AND VOMITING: taking reglan daily * PCOS: early 1 hr gct 95 * ABNORMAL PAP SMEAR: LSIL, HPV E6/E7 +, needs repeated in 1 year Final Diagnosis Final Diagnosis (1) Abdominal pain: Plan: 1. CMP with UA and CBC 2. Physical exam does not indicate appendicitis or liver discomfort. Status: Acute Code(s): R10.9 - Unspecified abdominal pain (2) Decreased movement: Plan: Encourage increased hydration, increase fruits and vegetables which contains sugar which increases movement, also encouraged left lateral recumbency which increases blood supply to baby and usually results in a increased movement. If none of these suggestions increases movement patient is to return to labor and delivery for evaluation. Status: Acute Code(s): O36.8190 - Decreased movements, unspecified trimester, not applicable or unspecified (3) 25 weeks gestation of : Plan: 1. In view of patient's abdominal pain lab and exam (doubtful for appendicitis.) 2. DC patient to home and encouraged her to keep her next visit. 3. Patient to return to labor and delivery if pain increases in intensity, are decreased movement continues. Status: Acute Code(s): Z3A.25 - 25 weeks gestation of (4) Allergic reaction: Status: Acute Code(s): T78.40XA - Allergy, unspecified, initial encounter Coding Level of Care Code Acute Code for Chg Fwd Diagnoses Abdominal pain R10.9 Decreased movement O36.8190 25 weeks gestation of Z3A.25 Allergic reaction T78.40XA
== END 2024-09-28 17:25 | disposition home or self-care (01) ==
LOC: OPOB 15:07 → OBGYN 15:10
PROVIDERS: Visit Provider Obstetrics & Gynecology
DX: O36.8190 Decreased fetal movements, unspecified trimester, not applicable or unspecified (principal); Z3A.00 Weeks of gestation of pregnancy not specified; R11.2 Nausea with vomiting, unspecified; R21 Rash and other nonspecific skin eruption
CPT/HCPCS: 36415; 80053; 81001; 85025; 99211

== ENCOUNTER 2024-10-04 14:50 | Outpatient (CLI) | payer BC, MEDICAID, SELFPAY ==
[2024-10-04] VITALS (7 sets, daily range): BP systolic 117–133; BP diastolic 59–77; PULSE 93–104; RESP 16; BMI 23.2
[2024-10-04 15:43] LABS: Glucose Urine UA Negative (Normal); Nitrate Urine Negative (Negative); Specific Gravity, Urine 1.019 (1.005-1.030)
== END 2024-10-04 16:22 | disposition home or self-care (01) ==
LOC: OPOB 14:51 → OBGYN 15:00
PROVIDERS: Absent Provider Obstetrics & Gynecology; Visit Provider Obstetrics & Gynecology
DX: O26.899 Other specified pregnancy related conditions, unspecified trimester (principal); Z3A.00 Weeks of gestation of pregnancy not specified; R25.2 Cramp and spasm; R10.2 Pelvic and perineal pain
CPT/HCPCS: 81001; 99211

== ENCOUNTER → 2024-10-18 14:23 | Outpatient (BNVA) | payer BC, MEDICAID, SELFPAY | PROVIDERS: Visit Provider Obstetrics & Gynecology | DX: Z34.90 Encounter for supervision of normal pregnancy, unspecified, unspecified trimester (principal) | CPT/HCPCS: 82950; 84315; 85025 ==

== ENCOUNTER → 2024-10-24 13:12 | Outpatient (BNVA) | payer MEDICAID, SELFPAY | PROVIDERS: Visit Provider Nurse Practitioner Women's Health | DX: Z36.9 Encounter for antenatal screening, unspecified (principal) | CPT/HCPCS: 76816 ==

== ENCOUNTER → 2024-11-02 15:13 | Outpatient (BNVA) | payer MEDICAID, SELFPAY | PROVIDERS: Visit Provider Obstetrics & Gynecology | DX: Z34.90 Encounter for supervision of normal pregnancy, unspecified, unspecified trimester (principal) | CPT/HCPCS: 84315 ==

== ENCOUNTER → 2024-11-15 14:31 | Outpatient (BNVA) | payer MEDICAID, SELFPAY | PROVIDERS: Visit Provider Obstetrics & Gynecology | DX: Z34.90 Encounter for supervision of normal pregnancy, unspecified, unspecified trimester (principal) | CPT/HCPCS: 84315 ==

== ENCOUNTER → 2024-11-29 08:37 | Outpatient (BNVA) | payer MEDICAID, SELFPAY | PROVIDERS: Visit Provider Nurse Practitioner Women's Health | DX: Z34.90 Encounter for supervision of normal pregnancy, unspecified, unspecified trimester (principal) | CPT/HCPCS: 76816; 82951; 82952; 84315 ==

== ENCOUNTER 2024-12-01 14:35 | Outpatient (CLI) | payer MEDICAID, SELFPAY ==
[2024-12-01 14:33] VITALS: RESP 17; BMI 25.3
[2024-12-01 14:44] VITALS: BP 118/79; PULSE 92
== END 2024-12-01 15:38 | disposition home or self-care (01) ==
LOC: OPOB 14:35 → OBGYN 14:36
PROVIDERS: Visit Provider Obstetrics & Gynecology
DX: O26.899 Other specified pregnancy related conditions, unspecified trimester (principal); Z3A.00 Weeks of gestation of pregnancy not specified; R25.2 Cramp and spasm
CPT/HCPCS: 59025; 99211

== ENCOUNTER 2024-12-07 13:59 | Outpatient (CLI) | payer MEDICAID, SELFPAY ==
[2024-12-07 14:11] VITALS: BP 116/66; PULSE 91
[2024-12-07 14:32] VITALS: BP 113/77; PULSE 94
[2024-12-07 14:45] LABS: Glucose Urine UA Negative (Normal); Nitrate Urine Negative (Negative); Specific Gravity, Urine 1.011 (1.005-1.030)
[2024-12-07 15:11] VITALS: BP 113/77; PULSE 94; RESP 16
== END 2024-12-07 15:11 | disposition home or self-care (01) ==
LOC: OPOB 13:59 → OBGYN 14:06
PROVIDERS: Visit Provider Obstetrics & Gynecology
DX: O26.899 Other specified pregnancy related conditions, unspecified trimester (principal); Z3A.00 Weeks of gestation of pregnancy not specified; R10.9 Unspecified abdominal pain
CPT/HCPCS: 59025; 81001; 99211

== ENCOUNTER 2024-12-12 15:15 | Outpatient (CLI) | payer BC, MEDICAID, SELFPAY ==
[2024-12-12 15:50] VITALS: BMI 25.3
[2024-12-12 15:57] LABS: Nitrazine Paper, PH Inconclusive
[2024-12-12 16:01] LABS: Glucose Urine UA 2+ (Normal); Nitrate Urine Negative (Negative); Specific Gravity, Urine 1.012 (1.005-1.030)
[2024-12-12 16:03] VITALS: BP 112/70; PULSE 94
[2024-12-12 16:17] VITALS: BP 106/61; PULSE 91
[2024-12-12 16:33] VITALS: BP 119/70; PULSE 88
== END 2024-12-12 16:38 | disposition home or self-care (01) ==
LOC: OPOB 15:21 → OBGYN 15:28
PROVIDERS: Visit Provider Obstetrics & Gynecology
DX: O26.899 Other specified pregnancy related conditions, unspecified trimester (principal); Z3A.00 Weeks of gestation of pregnancy not specified; R10.9 Unspecified abdominal pain
CPT/HCPCS: 59025; 81001; 83986; 84112; 99211

== ENCOUNTER → 2024-12-13 15:39 | Outpatient (BNVA) | payer BC, MEDICAID, SELFPAY | PROVIDERS: Visit Provider Obstetrics & Gynecology | DX: Z34.90 Encounter for supervision of normal pregnancy, unspecified, unspecified trimester (principal) | CPT/HCPCS: 84315; 87081 ==

== ENCOUNTER 2024-12-14 12:30 | Outpatient (CLI) | payer BC, MEDICAID, SELFPAY ==
[2024-12-14 12:38] VITALS: BP 123/78; PULSE 96
[2024-12-14 12:53] VITALS: BP 118/76; PULSE 90
[2024-12-14 13:09] VITALS: BP 120/69; PULSE 99
[2024-12-14 13:23] VITALS: BP 123/79; PULSE 90
== END 2024-12-14 13:29 | disposition home or self-care (01) ==
LOC: OPOB 12:31 → OBGYN 12:34
PROVIDERS: Absent Provider Obstetrics & Gynecology; Visit Provider Obstetrics & Gynecology
DX: O26.899 Other specified pregnancy related conditions, unspecified trimester (principal); Z3A.00 Weeks of gestation of pregnancy not specified; M54.9 Dorsalgia, unspecified
CPT/HCPCS: 59025; 99211

== ENCOUNTER 2024-12-19 10:14 | Outpatient (CLI) | payer BC, MEDICAID, SELFPAY ==
[2024-12-19] VITALS (19 sets, daily range): BP systolic 104–122; BP diastolic 55–79; PULSE 68–109; RESP 16; TEMP 36.9; O2SAT 98; BMI 25.7
[2024-12-19 11:04] LABS: Glucose Urine UA Negative (Normal); Nitrate Urine Negative (Negative); Specific Gravity, Urine 1.004 (1.005-1.030)
[2024-12-19] MEDS: ondansetron 2 mg/ML SDV 2 mL 4 MG IVP (11:46)
[2024-12-19 11:49] LABS: Hematocrit 36.9 % (36-47); Hemoglobin 12.00 g/dL (11.27-16.99); Mean Corpuscular HGB Conc 32.5 g/dL (30-55); Mean Corpuscular Hemoglobin 28.7 pg (27-33); Mean Corpuscular Volume 88.3 fl (85-98); Nucleated Red Blood Cells % 0 %; Platelet Count 199 10^3/cmm (157-399); Red Blood Count 4.18 10^6/uL (3.85-5.65); White Blood Count 8.90 10^3/uL (3.29-11.43)
[2024-12-19 12:07] LABS: Alanine Aminotransferase 10 U/L (0-33); Albumin Level 3.4 g/dL (3.5-5.2); Alkaline Phosphatase 142 U/L (35-105); Blood Urea Nitrogen 5 mg/dL (6-20); Calcium 9.6 mg/dL (8.5-10.5); Carbon Dioxide 22 mmol/L (22-29); Chloride 105 mmol/L (98-107); Creatinine Clr Calc Pharmacy 232.3463; Globulin 2.9 g/dL (1.3-4.6); Glucose 86 mg/dL (65-115); Osmolality Calculated 285 mOsm/kg (285-295); Sodium 139 mmol/L (136-145); Total Protein 6.3 g/dL (6.6-8.7)
[2024-12-19 12:08] LABS: Anion Gap 16.4 (5-19); Aspartate Amino Transferase 27 U/L (0-32); Potassium 4.4 mmol/L (3.5-5.1)
== END 2024-12-19 14:46 | disposition home or self-care (01) ==
LOC: OPOB 10:15 → OBGYN 10:19
PROVIDERS: Visit Provider Obstetrics & Gynecology
DX: O36.8190 Decreased fetal movements, unspecified trimester, not applicable or unspecified (principal); Z3A.00 Weeks of gestation of pregnancy not specified; R10.9 Unspecified abdominal pain; R11.10 Vomiting, unspecified
CPT/HCPCS: 36415; 59025; 80053; 81001; 85025; 99211; J2405; J7030

== ENCOUNTER → 2024-12-20 14:16 | Outpatient (BNVA) | payer BC, MEDICAID, SELFPAY | PROVIDERS: Visit Provider Obstetrics & Gynecology | DX: Z34.90 Encounter for supervision of normal pregnancy, unspecified, unspecified trimester (principal) | CPT/HCPCS: 84315 ==

== ENCOUNTER 2024-12-27 14:25 | Outpatient (CLI) | payer BC, MEDICAID, SELFPAY ==
[2024-12-27 14:25] VITALS: BMI 25.9
[2024-12-27 14:35] VITALS: BP 114/73; PULSE 83
[2024-12-27 14:50] VITALS: BP 111/68; PULSE 91
[2024-12-27 15:05] VITALS: BP 111/69; PULSE 85
[2024-12-27 15:20] VITALS: BP 114/77; PULSE 81
[2024-12-27 15:35] VITALS: BP 108/75; PULSE 82
[2024-12-27 15:50] VITALS: BP 109/65; PULSE 79
== END 2024-12-27 15:51 | disposition home or self-care (01) ==
LOC: OPOB 14:28 → OBGYN 14:31
PROVIDERS: Visit Provider Obstetrics & Gynecology
DX: O13.9 Gestational [pregnancy-induced] hypertension without significant proteinuria, unspecified trimester (principal); Z3A.00 Weeks of gestation of pregnancy not specified
CPT/HCPCS: 59025; 84315; 99211

== ENCOUNTER 2024-12-28 14:26 | Outpatient (CLI) | payer BC, MEDICAID, SELFPAY ==
[2024-12-28 14:30] VITALS: BMI 25.9
[2024-12-28 14:39] VITALS: BP 127/82; PULSE 106
[2024-12-28 14:59] VITALS: BP 111/68; PULSE 85
[2024-12-28 15:20] VITALS: BP 123/62; PULSE 89
[2024-12-28 15:39] VITALS: BP 110/59; PULSE 89
[2024-12-28 15:47] VITALS: BP 123/62; PULSE 89; RESP 15
== END 2024-12-28 15:47 | disposition home or self-care (01) ==
LOC: OPOB 14:32 → OBGYN 14:34
PROVIDERS: Visit Provider Family Medicine
DX: O13.9 Gestational [pregnancy-induced] hypertension without significant proteinuria, unspecified trimester (principal); Z3A.00 Weeks of gestation of pregnancy not specified
CPT/HCPCS: 59025; 99211

== ENCOUNTER 2025-01-06 01:24 | Outpatient (CLI) | payer BC, MEDICAID, SELFPAY ==
[2025-01-06 01:30] VITALS: BMI 26.2
[2025-01-06 01:39] VITALS: BP 124/79; PULSE 69
[2025-01-06 01:53] VITALS: BP 120/81; PULSE 82
[2025-01-06 02:09] VITALS: BP 115/73; PULSE 73
[2025-01-06 02:24] VITALS: BP 127/76; PULSE 65
[2025-01-06 02:30] VITALS: BP 127/76; PULSE 69; PULSE 70; RESP 17; TEMP 36.1; O2SAT 98
[2025-01-06 02:31] VITALS: TEMP 36.1
[2025-01-06 07:23] LABS: Nitrazine Paper, PH Negative
== END 2025-01-06 02:35 | disposition home or self-care (01) ==
LOC: OPOB 01:24 → OBGYN 01:25
PROVIDERS: Visit Provider Obstetrics & Gynecology
DX: O26.899 Other specified pregnancy related conditions, unspecified trimester (principal); Z3A.00 Weeks of gestation of pregnancy not specified; R10.9 Unspecified abdominal pain; N89.8 Other specified noninflammatory disorders of vagina
CPT/HCPCS: 59025; 83986; 99211

== ENCOUNTER 2025-01-08 01:09 | Outpatient (CLI) | payer BC, MEDICAID, SELFPAY ==
[2025-01-08] VITALS (10 sets, daily range): BP systolic 114–135; BP diastolic 71–89; PULSE 69–86; RESP 16; BMI 26.3
== END 2025-01-08 03:25 | disposition home or self-care (01) ==
LOC: OPOB 01:10 → OBGYN 01:11
PROVIDERS: Visit Provider Obstetrics & Gynecology
DX: O26.899 Other specified pregnancy related conditions, unspecified trimester (principal); Z3A.00 Weeks of gestation of pregnancy not specified; R10.9 Unspecified abdominal pain
CPT/HCPCS: 59025; 99211

== ENCOUNTER → 2025-01-10 15:24 | Outpatient (BNVA) | payer BC, MEDICAID, SELFPAY | PROVIDERS: Visit Provider Obstetrics & Gynecology | DX: Z3A.40 40 weeks gestation of pregnancy (principal) | CPT/HCPCS: 84315 ==

== ENCOUNTER 2025-01-11 00:02 | Inpatient (IN) | payer BC, MEDICAID, SELFPAY ==
[2025-01-10] VITALS (14 sets, daily range): BP systolic 119–141; BP diastolic 68–86; PULSE 75–94; O2SAT 98; BMI 26.3
[2025-01-10 16:56] LABS: Hematocrit 38.9 % (36-47); Hemoglobin 12.70 g/dL (11.27-16.99); Mean Corpuscular HGB Conc 32.6 g/dL (30-55); Mean Corpuscular Hemoglobin 29.1 pg (27-33); Mean Corpuscular Volume 89.2 fl (85-98); Nucleated Red Blood Cells % 0 %; Platelet Count 218 10^3/cmm (157-399); Red Blood Count 4.36 10^6/uL (3.85-5.65); White Blood Count 9.11 10^3/uL (3.29-11.43)
[2025-01-10] MEDS: ondansetron 2 mg/ML SDV 2 mL 4 MG IVP (21:04)
[2025-01-11] VITALS (55 sets, daily range): BP systolic 104–140; BP diastolic 51–100; PULSE 64–100; RESP 16; TEMP 35.7–37.3; O2SAT 97–99
[2025-01-11] MEDS: ROPivacaine premix 200 MG/100 ML PREMIX 10 MG EPIDURAL (00:13)
--- NOTE | 2025-01-11 00:15 | P.HP_ITS ---
Providers/Chief Complaint 2 Admitting Physician: Darryn Álvarez MD Primary MORTGAGE LENDER: Darryn Álvarez MD Chief Complaint: iol' HPI MORTGAGE LENDER History of Present Illness Patient was admitted on January 10, 2025, at 1715 24 y.o. SA1 EDC January 09, 2025 At 40 w 1 d No complications Admitted for induction of labor No c/o + active movements Present Details : 2 Para: 0 Labs Rubella: Immune RPR: Negative GBS: Negative Medications/Allergies Home Medications ?Medication ?Instructions ?Recorded ?Confirmed ?Last Taken ?Type vits no.126-ferrous fum 1 tab PO DAILY #90 ta bs 11/29/24 01/10/25 01/07/25 22:00 Rx 28 mg iron-folic acid 800 mcg tablet (Classic ) metoclopramide HCl 5 mg tablet 5 mg PO DAILY PRN Nause a 12/13/24 01/10/25 01/07/25 22:00 History (Reglan) Allergies Allergy/AdvReac Type Severity Reaction Status Date / Time marijuana (cannabis) Allergy ALGY-Anaphy Verified 01/10/25 15:29 laxis PFSH MORTGAGE LENDER 2 PFSH: Medical History (Updated 01/12/25 @ 03:57 by Darryn Álvarez MD) Chronic abdominal pain Asthma PCOS (polycystic ovarian syndrome) Surgical History History of esophagogastroduodenoscopy (EGD) Age 21- [place] teeth removed H/O laparoscopy Family History Father Diabetes Hypertension Mother No problems noted. Grandfather Heart disease Thyroid disease Denies family history of Colon cancer Ovarian cancer Prostate cancer Breast cancer Uterine cancer Stroke Social History Smoking and tobacco/nicotine status: former use of tobacco/nicotine History History History 2 2 Term 0 0 Miscarriages/Ectopic 1 Living Children 0 Care KERVIN Calculator 2 Estimated Delivery Date Method Current WG Current Estimate 01/09/25 Ultrasound #1 42w 1d Specific Issues/Plans * * NAUSEA AND VOMITING: taking reglan daily * PCOS: early 1 hr gct 95, 28 week 1 hr elevated, 3 hr gtt nomal * ABNORMAL PAP SMEAR: LSIL, HPV E6/E7 +, needs repeated in 1 year * CHOROID PLEXUS CYST OF THE FETUS Vitals/I&O/Wt Last Vital Signs Temp 98.3 F 01/13/25 14:00 Pulse 101 H 01/13/25 14:00 Resp 16 01/13/25 14:00 BP 123/83 01/13/25 14:00 Pulse Ox 98 01/13/25 14:00 O2 Del Method Room Air 01/13/25 04:00 Physical Exam 2 Narrative: Weight 168 lbs; 5?7? VS normal General comfortable, awake, alert, appropriate Lungs: clear Cor: RRR FH 38 cm, cephalic Cervix: closed / 50% / -3 / posterior Ext: no edema External monitor: heart tracing good variability, + acceleration Urinary Catheter Management: [place] Latex: Cath Placed During This Visit: yes, but has since been removed by the nurse Reason for Continuing Indwelling Catheter: Decision to DC Catheter Urinary Catheter Date of Insertion: 01/11/25 Urinary Catheter Time of Insertion: 00:55 Date Urinary Catheter Removed: 01/11/25 Time Urinary Catheter Discontinued: 03:52 Data 01/11/25 22:15 Results Labs OB ([facility]): 2 Obstetrics US 11/29/24 Blood Type B Positive 01/10/25 Antibody Screen Negative 01/10/25 Hct, (36-47) 32.9 % L 01/11/25 Hgb, (11.27-16.99) 10.90 g/dL L 01/11/25 Rho(D) Type Rh positive 01/10/25 Plt Count, (157-399) 182 10^3/cmm 01/11/25 Hep Bs Antigen, (Nonreactive) Non-reactive 06/27/24 Hepatitis C Antibody, (Nonreactive) Non-reactive 06/04 08/27 Rubella IgG Antibody, (0.0-10.0) 37.3 IU/mL H RPR, (Nonreactive) Nonreactive 06/27/24 HIV 1&2 Ab & HIV 1 Ag, (Non-Reactiv) Non-reactive TSH, (0.27-4.20) 0.51 uIU/mL 06/27/24 Glucose 1 Hr 50 gm, (85-140) 145 mg/dL H 10/18/24 Gest Glucose Tolerance mg/dL 11/29/24 Ser , Semi-Qnt 61952.00 mIU/mL 08/13/24 HCG, Qual, (Negative) Positive H 06/02/24 Micro Urine Specimen 06/27/24 Pap Smear Interpret See note A 07/06/24 A&P Assessment and plan 1. : 40 w 1 d Fetus reassuring Admit for labor induction Plan Cytotec 25 ug intravaginal Rh + PDMP PDMP Reviewed: Not Reviewed Attestations 2 Medical Necessity Statement*: patient at 40 w 1 d, admitted for induction of labor Coding Level of Care Code Acute Code for Chg Fwd Diagnoses Z34.90
--- NOTE | 2025-01-11 00:25 | P.ANESASSM_ITS ---
Pre-Anesthetic Assessment Height/Weight: Height 1.7 m Weight 76.204 kg Pulse BP Pulse Ox O2 Del Method 82 124/65 99 Room Air 01/11/25 00:23 01/11/25 00:19 01/11/25 00:23 01/10/25 16:20 Epidural Familial anesthetic complications: None Was Beta Dorota taken within 24 hours: N/A Was Clonidine taken within 24 hours: N/A Last intake: 1400 Solids Social No alcohol and No tobacco Exam alert, oriented x 3, clear to auscultation bilaterally and regular rate & rhythm Airway Submandibular: within normal limits Cervical ROM: within normal limits Mallampati: Class II Dentition: chipped History/ROS No significant history except as noted and No significant complaints Pulmonary Asthma CV/HEM None reported None reported Hepatic None reported GI Gastroesophageal Reflux Disease Metabolic None reported Musc/skel Scoliosis (Slight curve) Neuropsych None reported Anesthetic Plan ASA status: 2 Anesthesia: Anesthesia Evaluation, General and Regional (specify below) (Epidural) Risk of > 500 ml blood loss (7ml/kg in children): Yes, adequate IV access and fluids planned Medications/Allergies Home Medications ?Medication ?Instructions ?Recorded ?Confirmed ?Last Taken ?Type vits no.126-ferrous fum 1 tab PO DAILY #90 ta bs 11/29/24 01/10/25 01/07/25 22:00 Rx 28 mg iron-folic acid 800 mcg tablet (Classic ) metoclopramide HCl 5 mg tablet 5 mg PO DAILY PRN Nause a 12/13/24 01/10/25 01/07/25 22:00 History (Reglan) Allergies Allergy/AdvReac Type Severity Reaction Status Date / Time marijuana (cannabis) Allergy ALGY-Anaphy Verified 01/10/25 15:29 laxis Current Medications Generic Name Dose Route Start Last Admin Trade Name Freq PRN Reason Stop Dose Admin Acetaminophen 650 mg 01/10/25 16:21 01/10/25 21:38 Acetaminophen 325 Mg Tablet PO 650 mg Q6H PRN Administration Mild pain or temp > 100.4 Lactated Ringer's 1,000 mls @ 999 mls/hr 01/10/25 22:32 01/10/25 23:59 Lactated Ringers IV 999 mls/hr .Q1H1M PRN Administration See label comments Ropivacaine 200 mg in 100 mls @ 10 mls/hr 01/10/25 22:45 10/09/25 00:13 Naropin Premix EPIDURAL 10 mls/hr .Q10H EKATERINA Administration Misoprostol 25 mcg 01/10/25 17:00 01/10/25 17:12 Misoprostol 100 Mcg Tablet VAGINAL 01/11/25 01:01 25 mcg Q4H EKATERINA Administration Ondansetron HCl 4 mg 01/10/25 16:21 01/10/25 21:04 Ondansetron 2 Mg/Ml Sdv 2 Ml IVP 4 mg Q4H PRN Administration NAUSEA AND VOMITING PFSH Anesthesia Medical History Chronic abdominal pain Asthma PCOS (polycystic ovarian syndrome) Surgical History History of esophagogastroduodenoscopy (EGD) Age 21- [place] teeth removed H/O laparoscopy Family History Father Diabetes Hypertension Mother No problems noted. Grandfather Heart disease Thyroid disease Denies family history of Colon cancer Ovarian cancer Prostate cancer Breast cancer Uterine cancer Stroke Social History Smoking and tobacco/nicotine status: former use of tobacco/nicotine Female Reproductive History : 2 Data Anesthesia 01/10/25 16:35 Short CBC 01/10/25 Range/Units 16:35 WBC 9.11 (3.29-11.43) 10^3/uL Hgb 12.70 (11.27-16.99) g/dL Hct 38.9 (36-47) % MCV 89.2 (85-98) fl Plt Count 218 (157-399) 10^3/cmm Neut % (Auto) 72.6 % Neut # (Auto) 6.61 (1.8-7.7) 10^3/uL Blood Bank 01/10/25 16:35 Blood Type B Positive Rho(D) Type Rh positive Antibody Screen Negative
--- NOTE | 2025-01-11 00:27 | P.ANES_ITS ---
Anesthesia Procedures Procedure/Date: 01/11/25 Epidural: Time Out Performed: Yes Consents Signed: Procedure Consent and NPO Consent Consent: requested by attending/covering physician, from patient, risks and benefits reviewed and patient agrees to proceed Lumbar Level: L3-L4 Epidural position: sitting Epidural procedure: sterile prep of area (betadine), 1% lidocaine to numb the area (3 mLs), neg for paresthesia, test dose given, 1.5% xylocaine 1:200k epi (3 mLs/ 2 mLs), placed PCEA, no systemic response, sterile dressing applied, L.U.D. no apparent complications and 0.2% Ropiavacaine @ mls/hr (13) Additional Comments: SERGIO 4.5cm, catheter threaded to 10cm. Negative aspiration for CSF and blood. Patient tolerated well. Patient educated on NURSING ASSISTANT button use.
[2025-01-11] MEDS: ondansetron 2 mg/ML SDV 2 mL 4 MG IVP ×2 (02:05→08:45)
[2025-01-11] MEDS: metoclopramide 5 mg/mL SDV 2 mL 10 MG IV (03:42)
[2025-01-11] MEDS: ROPivacaine premix 200 MG/100 ML PREMIX 13 MG EPIDURAL (06:44)
--- NOTE | 2025-01-11 10:10 | PM.DELIVERY ---
Delivery Note: Date of delivery: January 11, 2025 Pre-delivery diagnoses: 40 w 2 d mildly elevated BPs induction of labor Post-delivery diagnoses: 40 w 2 d mildly elevated BPs induction of labor Procedure: induction of labor vacuum-assisted vaginal delivery repair of second-degree perineal laceration Op report anesthesia: Epidural Delivering Physician: Darryn Álvarez MD Estimated blood loss (mL): 300 Findings: Head JIAN, + 3 station Patient with poor pushing efforts and maternal exhaustion Vacuum extractor applied Mild traction used through one UC, brought head to perineum Shoulders delivered easily vigorous Cord gases and blood obtained Normal placenta and cord Second-degree perineal laceration repaired EBL: 300 cc No complications Pre-Delivery Course: normal labor course fetus reassuring throughout Delivery: vacuum-assisted vaginal delivery Post-Delivery Status: good History History History 2 Term 0 0 Miscarriages/Ectopic 1 Living Children 0 A&P Assessment and plan 1. Vaginal delivery: PDMP PDMP Reviewed: Not Reviewed Coding Level of Care Code Acute Code for Chg Fwd Diagnoses Vaginal delivery O80
[2025-01-11] MEDS: benzocaine-menthol 78 gm Canister 1 SPRAY TOPICAL (12:52)
[2025-01-11] MEDS: HYDROcodone-acetaminophen 5-325 mg Tablet PO (14:10)
[2025-01-11 22:19] LABS: Hematocrit 32.9 % (36-47); Hemoglobin 10.90 g/dL (11.27-16.99); Mean Corpuscular HGB Conc 33.1 g/dL (30-55); Mean Corpuscular Hemoglobin 28.9 pg (27-33); Mean Corpuscular Volume 87.3 fl (85-98); Platelet Count 182 10^3/cmm (157-399); Red Blood Count 3.77 10^6/uL (3.85-5.65); White Blood Count 12.95 10^3/uL (3.29-11.43)
[2025-01-12] MEDS: HYDROcodone-acetaminophen 5-325 mg Tablet PO (00:14)
[2025-01-12] MEDS: ondansetron 2 mg/ML SDV 2 mL 4 MG IVP (03:40)
[2025-01-12] MEDS: PRENATAL VIT NO.130/IRON/FOLIC 1 EACH TABLET PO (05:23)
[2025-01-12 05:29] VITALS: BP 117/72; PULSE 72; RESP 16; TEMP 37.1; O2SAT 97
--- NOTE | 2025-01-12 11:23 | PC.NURSE ---
[facility] here to speak with patient regarding an anonymous call placed by someone outside hospital at this time.
[2025-01-12 11:25] VITALS: BP 121/84; PULSE 76; RESP 18; TEMP 36.6; TEMP 36.7; O2SAT 98
--- NOTE | 2025-01-12 14:05 | P.PN_ITS ---
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 fundus firm Ext: no edema; nontender Hgb 10.9 Urinary Catheter Management: [employer]: Cath Placed During This Visit: yes, but has since been removed by the nurse Reason for Continuing Indwelling Catheter: Decision to DC Catheter Urinary Catheter Date of Insertion: 01/11/25 Urinary Catheter Time of Insertion: 00:55 Date Urinary Catheter Removed: 01/11/25 Time Urinary Catheter Discontinued: 03:52 Data 01/11/25 22:15 A&P Assessment and plan 1. Vaginal delivery: PPD #1 vacuum-assisted vaginal delivery doing well normal course continue care PDMP PDMP Reviewed: Not Reviewed Attestations 2 Medical Necessity Statement*: patient s/p vaginal delivery, for care Coding Level of Care Code Acute Code for Chg Fwd Diagnoses Vaginal delivery O80
--- NOTE | 2025-01-12 15:34 | PC.NURSE ---
Patient assisted in latching baby, demonstrated several techniques to patient and assisted with latching. Baby nursed for 5 minutes and was still going when administrative underwriter left room.
[2025-01-12 16:00] VITALS: BP 124/82; PULSE 69; RESP 18; TEMP 36.7
[2025-01-12 22:00] VITALS: BP 122/66; PULSE 77; RESP 16; TEMP 36.7; O2SAT 99
[2025-01-13 04:00] VITALS: BP 137/94; PULSE 82; RESP 16; TEMP 36.6; O2SAT 98
[2025-01-13] MEDS: PRENATAL VIT NO.130/IRON/FOLIC 1 EACH TABLET PO (04:22)
[2025-01-13 11:41] VITALS: BP 118/74; PULSE 74; RESP 15; TEMP 36.7
[2025-01-13 14:00] VITALS: BP 123/83; PULSE 101; RESP 16; TEMP 36.8; O2SAT 98
--- NOTE | 2025-01-13 14:10 | PM.OBGYDC ---
Discharge Providers COMPONENT ASSEMBLER SUPERVISOR Date of Admission: 01/11/25 00:02 Date of Discharge: 01/13/25 Attending Provider at Admission: Darryn Álvarez MD Attending Provider at Discharge: Darryn Álvarez MD Consults: none Primary COMPONENT ASSEMBLER SUPERVISOR: Darryn Álvarez MD Diagnoses at Discharge Discharge Diagnosis 1. Vaginal delivery: Details from hospital stay: 24 y.o. A1 at 40 w 1 d admitted for induction of labor patient was given cytotec and then pitocin per protocol patient progressed to complete dilatation fetus was reassurring throughout patient had poor pushing efforts vacuum-assisted vaginal delivery was performed without any complications there was repair of a second-degree perineal laceration patient did well She had no complications patient was discharged to home on the second day Reason for Visit Reason for Visit: iol' Brief History: 24 y.o. A1 at 40 w 1 d admitted for induction of labor Hospital Course Hospital Course 24 y.o. A1 at 40 w 1 d admitted for induction of labor patient was given cytotec and then pitocin per protocol patient progressed to complete dilatation fetus was reassurring throughout patient had poor pushing efforts vacuum-assisted vaginal delivery was performed without any complications there was repair of a second-degree perineal laceration patient did well She had no complications patient was discharged to home on the second day Information Peripartum Data: Infant Delivery Method: Vaginal Laceration description: Perineal - 2nd Degree Episiotomy description: None complications: none Physical Exam Narrative: afebrile, VS normal comfortable, awake, alert Lungs: clear Cor: RRR Abd: soft, nontender. fundus firm Ext: no edema; nontender Urinary Catheter Management: [employer]: Cath Placed During This Visit: yes, but has since been removed by the nurse Reason for Continuing Indwelling Catheter: Decision to DC Catheter Urinary Catheter Date of Insertion: 01/11/25 Urinary Catheter Time of Insertion: 00:55 Date Urinary Catheter Removed: 01/11/25 Time Urinary Catheter Discontinued: 03:52 History History History 2 Term 0 0 Miscarriages/Ectopic 1 Living Children 0 Discharge Data Studies Completed and Pending Laboratory Results WBC 12.95 10^3/uL (3.29-11.43) H 01/11/25 22:15 RBC 3.77 10^6/uL (3.85-5.65) L 01/11/25 22:15 Hgb 10.90 g/dL (11.27-16.99) L 01/11/25 22:15 Hct 32.9 % (36-47) L 01/11/25 22:15 MCV 87.3 fl (85-98) 01/11/25 22:15 MCH 28.9 pg (27-33) 01/11/25 22:15 MCHC 33.1 g/dL (30-55) 01/11/25 22:15 RDW 13.4 % (12.1-15.1) 01/11/25 22:15 Plt Count 182 10^3/cmm (157-399) 01/11/25 22:15 MPV 11.4 fL (7.4-10.4) H 01/11/25 22:15 Neut % (Auto) 72.6 % 01/10/25 16:35 Lymph % (Auto) 17.1 % 01/10/25 16:35 [place] % (Auto) 9.0 % 01/10/25 16:35 Eos % (Auto) 0.4 % 01/10/25 16:35 Baso % (Auto) 0.2 % 01/10/25 16:35 Neut # (Auto) 6.61 10^3/uL (1.8-7.7) 01/10/25 16:35 Lymph # (Auto) 1.6 10^3/uL (0.8-4.8) 01/10/25 16:35 [place] # (Auto) 0.8 10^3/uL (0.2-0.9) 01/10/25 16:35 Eos # (Auto) 0.0 10^3/uL (0.0-0.8) 01/10/25 16:35 Baso # (Auto) 0.0 10^3/uL (0.0-0.1) 01/10/25 16:35 Nucleated RBC % (auto) 0 % 01/10/25 16:35 Nucleated RBCs # 0.0 /100WBC 01/10/25 16:35 Blood Type B Positive 01/10/25 16:35 Rho(D) Type Rh positive 01/10/25 16:35 Antibody Screen Negative 01/10/25 16:35 Procedures Performed induction of labor vacuum-assisted vaginal delivery repair of second-degree perineal laceration Vitals Last Vital Signs Temp 98.3 F 01/13/25 14:00 Pulse 101 H 01/13/25 14:00 Resp 16 01/13/25 14:00 BP 123/83 01/13/25 14:00 Pulse Ox 98 01/13/25 14:00 O2 Del Method Room Air 01/13/25 04:00 Results Labs OB ([facility]): Obstetrics US 11/29/24 Blood Type B Positive 01/10/25 Antibody Screen Negative 01/10/25 Hct, (36-47) 32.9 % L 01/11/25 Hgb, (11.27-16.99) 10.90 g/dL L 01/11/25 Rho(D) Type Rh positive 01/10/25 Plt Count, (157-399) 182 10^3/cmm 01/11/25 Hep Bs Antigen, (Nonreactive) Non-reactive 06/27/24 Hepatitis C Antibody, (Nonreactive) Non-reactive 06/27/24 Rubella IgG Antibody, (0.0-10.0) 37.3 IU/mL H 06/27/24 RPR, (Nonreactive) Nonreactive 06/27/24 HIV 1&2 Ab & HIV 1 Ag, (Non-Reactiv) Non-reactive 06/27/24 TSH, (0.27-4.20) 0.51 uIU/mL 06/27/24 Glucose 1 Hr 50 gm, (85-140) 145 mg/dL H 10/18/24 Gest Glucose Tolerance mg/dL 11/29/24 Ser , Semi-Qnt 10138.00 mIU/mL 08/13/24 HCG, Qual, (Negative) Positive H 06/02/24 Micro Urine Specimen 06/27/24 Pap Smear Interpret See note A 07/06/24 Discharge Plan Discharge Patient Disposition: Home Condition: Stable Prescriptions: Continued metoclopramide HCl [Reglan] 5 mg tablet 5 mg PO DAILY PRN (Reason: Nausea) Classic 28 mg iron- 800 mcg tablet 1 tab PO DAILY Qty: 90 2RF Rx Instructions: take one tab daily Discharge Order = DC NOW: Discharge Order (Routine); Ordered 01/13/25 Ordered By: Darryn Álvarez Referrals: Darryn Álvarez MD [Physician, COMPONENT ASSEMBLER SUPERVISOR] Referral Note: [facility] call [facility] @ on Wednesday to schedule your appointment. Patient Instructions: Depression (DC), Bleeding (DC), Preeclampsia and Eclampsia After Delivery (GEN), Hemorrhage (DC), OB Discharge Report, OB Food/Drug Interaction Guide, Opioid Safety, OB Home Care, OB Proud Parent Packet, OB Vaginal Deliveries - [facility], Patient Portal & Denis Instructions Discharge Attestations COMPONENT ASSEMBLER SUPERVISOR Time Spent in Discharge Care*: less than 30 min Coding Level of Care Code Acute Code for Chg Fwd Diagnoses Vaginal delivery O80
== END 2025-01-13 14:15 | disposition home or self-care (01) | DRG 807 ==
LOC: OPOB 00:03 → OBGYN 00:03
PROVIDERS: Admitting Provider Obstetrics & Gynecology; Visit Provider Obstetrics & Gynecology
DX: O48.0 Post-term pregnancy (principal); Z37.0 Single live birth; Z3A.40 40 weeks gestation of pregnancy; O70.1 Second degree perineal laceration during delivery; O99.284 Endocrine, nutritional and metabolic diseases complicating childbirth; E28.2 Polycystic ovarian syndrome; Z87.891 Personal history of nicotine dependence
CPT/HCPCS: 36415; 51702; 59025; 59409; 85025; 85027; 86850; 86900; 96374; 96376; J2405; J2765; J2795; J7120; J7121; J9999; Q0162

== ENCOUNTER → 2025-02-09 14:55 | Outpatient (BNVA) | payer BC, MEDICAID, SELFPAY | PROVIDERS: Visit Provider Emergency Medicine | DX: R30.0 Dysuria (principal) | CPT/HCPCS: 81000; 87086 ==